=== PATIENT | female | born 1945 | race Caucasian/White ===

== ENCOUNTER 2018-06-25 15:46 | Inpatient (IN) ==
[2018-06-25] MEDS ORDERED: 0.9 % SODIUM CHLORIDE 1,000 ML IV ONE (16:06)
[2018-06-25] MEDS ORDERED: ONDANSETRON 4 MG/2 ML VIAL IV ONE (16:06)
[2018-06-25 16:43] LABS: Basophils # (Auto) 0 K/mcL (0.0-0.3); Basophils % (Auto) 0 % (0.0-2.0); Eosinophils # (Auto) 0 K/mcL (0.0-0.7); Eosinophils % (Auto) 0.1 % (0.0-7.0); Granulocytes % (Auto) 86.7 % (38.0-78.0); Lymphocytes % (Auto) 7.6 % (15.5-49.0); Mean Cell Volume 85.8 fL (80.0-100.0); Mean Corpuscular HGB Conc 33.9 g/dL (31.0-36.0); Monocytes # (Auto) 0.8 K/mcL (0.1-0.9); Monocytes % (Auto) 5.6 % (1.0-12.0); Platelet Count 408 K/mcL (140-440); RBC 4.96 M/mcL (4.00-5.20); Red Cell Distribution Width 13.6 % (11.5-14.5)
[2018-06-25 17:39] LABS: ALT/SGPT 25 U/l (0-40); Albumin 4.3 gm/dL (3.2-5.2); Albumin/Globulin Ratio 1.3 (1.0-2.3); Alkaline Phosphatase 106 U/L (39-117); Blood Urea Nitrogen 16 mg/dl (8-23)
--- NOTE | 2018-06-25 18:04 | Emergency Department Note ---
Nausea/Vomiting/Diarrhea HPI - General Chief complaint: Nausea/Vomiting/Diarrhea Stated complaint: nausea Time Seen by Provider: 06/25/18 15:52 Source: patient Mode of arrival: ambulatory Limitations: no limitations - History of Present Illness HPI Narrative: 72-year-old female in ED with present. Patient states she began having pain 5-6 days ago. Left side near the lower rib pain. Patient states she was seen here 4 days ago for rib pain. Patient was placed on hydrocodone due to healing rib fracture. Patient began vomiting after leaving the ER. And has had multiple episodes since. No diarrhea. Patient does not know how she may have fractured her rib. Patient was seen by her primary care physician one day ago and switched to tramadol and Compazine and taken off the hydrocodone. Patient has had increased nausea and difficulty eating over the last 6 days. Patient has been unable to keep food down. Patient does have sciatica problems and receives pain injections. Patient states she did have a cold and in May but that since has cleared. And she also has had an abscess on the bottom of her right foot and was advised she could be done taking the antibiotics yesterday at her physician's visit. Today patient was walking to the bathroom around 10 AM and slid herself to the ground due to weakness. Her returned home about 4 hours later and she was still on the ground alert and oriented but severely weak. states it was very difficult getting her into the vehicle due to her weakness. Patient has history of heart murmur, hypertension, dyslipidemia, peripheral neuropathy, GERD, type 2 diabetes non- insulin-dependent. MD complaint: nausea, vomiting Onset (ago): day(s) (5) Description of Vomiting: watery Associated Abdominal Pain: Yes (ULQ) Location of pain: LUQ Severity: moderate Quality: aching Consistency: constant Improves with: none Worsens with: vomiting Associated symptoms: Reports: loss of appetite, nausea/vomiting, weakness - Related Data Home Medications Medication Instructions Recorded Confirmed Carvedilol [Coreg] 25 mg PO BID 06/20/16 06/25/18 Cyanocobalamin [Vitamin B12] 1,000 mcg IM Q21D 06/20/16 06/25/18 Fish Oil 1,000 mg PO BID 06/20/16 06/25/18 Losartan Potassium [Cozaar] 100 mg PO DAILY@1200 06/20/16 06/25/18 Multivit with Iron-Minerals 1 tab PO DAILY 06/20/16 06/25/18 [Centravites 50 Plus] Omeprazole [PriLOSEC] 20 mg PO ACB 06/20/16 06/25/18 Spironolactone [Aldactone] 25 mg PO DAILY 06/20/16 06/25/18 amLODIPine [Norvasc] 5 mg PO DAILY 06/20/16 06/25/18 metFORMIN HCL [Glucophage Xr] 500 mg PO BID 06/20/16 06/25/18 traMADol [Ultram] 50 mg PO BID 06/20/16 06/25/18 Chlorthalidone 50 mg PO DAILY 06/25/18 06/25/18 Allergies Allergy/AdvReac Type Severity Reaction Status Date / Time Erythromycin Base Allergy Mild Diarrhea Verified 06/25/18 15:50 Penicillins AdvReac Unknown Unknown Verified 06/25/18 15:50 Review of Systems All systems ED: reviewed and negative except as stated. Past Medical History - Past Medical History PMFSH Narrative: All Active Problems Allergic reaction (Acute) Bee sting reaction (Acute) Chest wall pain (Acute) Medical history: Reports: arthritis, cancer (Breast, melanoma), DM, GERD, hyperlipidemia, hypertension, valvular heart disease (Rheumatic fever) Surgical history ED: Reports: - Social History smoking status: Never smoker Alcohol use: Reports: None Drug use: Reports: none Physical Exam Limitations: no limitations General appearance: alert, lethargic Head: atraumatic, normocephalic, normal inspection Eye: Present: normal appearance, PERRL, EOMI. Absent: conjunctival injection ENT: normal exam, normal oropharynx, mucous membranes dry, TM's normal bilaterally, normal external ear exam Neck: Present: normal inspection. Absent: tenderness, lymphadenopathy Chest: Present: normal inspection, symmetric chest wall rise. Absent: tenderness Respiratory: Present: normal lung sounds bilaterally. Absent: respiratory distress, rales/crackles, wheezes Cardiovascular: Present: regular rate, normal rhythm. Absent: systolic murmur, diastolic murmur Abdominal: Present: soft, tenderness (LUQ), normal bowel sounds. Absent: distention, guarding, rebound, rigidity Extremities: Present: normal inspection. Absent: pedal edema Neurological: Present: alert, oriented X3 Psychiatric: Present: normal affect, normal mood. Absent: depressed, agitated, anxious Skin: Present: warm, dry, intact, normal color. Absent: cyanosis, diaphoresis, erythema Course Vital Signs Temperature 97.6 F 06/25/18 15:47 Pulse Rate 75 06/25/18 15:47 Respiratory Rate 18 06/25/18 15:47 Blood Pressure 155/83 06/25/18 15:47 Pulse Oximetry (%) 95 06/25/18 15:47 Temperature 98.0 F 06/25/18 20:32 Pulse Rate 85 06/25/18 20:45 Respiratory Rate 15 06/25/18 20:45 Blood Pressure 163/91 06/25/18 20:45 Pulse Oximetry (%) 95 06/25/18 20:45 Nausea/Vomiting/Diarrhea - [facility] Narrative Medical decision making narrative: provided pt 1 liter normal saline while waiting for labs to Return. Pt with White Blood cell count 13.9, sodium 110, potassium 2.6 Dr. Hare consult on admitting the patient with hyponatremia and hypokalemia. kindly accepted. - Lab Data Lab results reviewed: Yes I reviewed the patient's lab results. Result diagrams: 06/25/18 16:16 06/25/18 18:45 Lab Results 06/25/18 06/25/18 06/25/18 Range/Units 16:15 16:16 16:16 WBC 13.9 H (4.5-11.0) K/mcL RBC 4.96 (4.00-5.20) M/mcL Hgb 14.4 (12.0-15.0) g/dL Hct 42.5 (36.0-48.0) % MCV 85.8 (80.0-100.0) fL MCH 29.1 (26.0-34.0) pg MCHC 33.9 (31.0-36.0) g/dL RDW 13.6 (11.5-14.5) % Plt Count 408 (140-440) K/mcL MPV 7.3 L (7.4-10.4) fL Gran % 86.7 H (38.0-78.0) % Lymph % (Auto) 7.6 L (15.5-49.0) % [place] % (Auto) 5.6 (1.0-12.0) % Eos % (Auto) 0.1 (0.0-7.0) % Baso % (Auto) 0 (0.0-2.0) % Gran # 12.0 H (1.8-8.0) K/mcL Lymph # (Auto) 1.0 L (1.5-4.8) K/mcL [place] # (Auto) 0.8 (0.1-0.9) K/mcL Eos # (Auto) 0 (0.0-0.7) K/mcL Baso # (Auto) 0 (0.0-0.3) K/mcL Total Counted Seg Neutrophils % (38-78) % Band Neutrophils % Lymphocytes % (15-49) % Monocytes % (Manual) (1-12) % Basophils % (Manual) (0-2) % Platelet Estimate (NORMAL) RBC Morphology (NORMAL) Sodium 110 L* (133-145) mmol/L Potassium 2.7 L* (3.3-5.1) mmol/L Chloride 67 L (96-108) mmol/L Carbon Dioxide 27 (22-30) mmol/L Anion Gap 16.0 (8-16) BUN 16 (8-23) mg/dl Creatinine 0.6 (0.6-1.1) mg/dl GFR Calculation 92 Glucose 158 H (70-105) mg/dL Osmolality (280-300) mOSM/kg Uric Acid (2.5-8.0) mg/dL Calcium 9.5 (8.6-10.4) mg/dl Phosphorus (2.7-4.5) mg/dL Magnesium (1.6-2.5) mg/dL Total Bilirubin 1.1 H (0.0-1.0) mg/dL AST 25 (0-37) U/l ALT 25 (0-40) U/l Alkaline Phosphatase 106 (39-117) U/L Total Protein 7.7 (5.9-8.4) gm/dL Albumin 4.3 (3.2-5.2) gm/dL Globulin 3.4 (2.2-3.7) gm/dL Albumin/Globulin Ratio 1.3 (1.0-2.3) TSH 1.39 (0.27-5.01) uIU/ml Urine Color Urine Appearance Urine pH (5.0-9.0) Ur Specific [place] (1.000-1.035) Urine Protein (NEG) mg/dL Urine Glucose (UA) (NEG) mg/dL Urine Ketones (NEG) mg/dL Urine Occult Blood (<0.03) mg/dL Urine Nitrate (NEG) Urine Bilirubin (NEG) mg/dL Urine Urobilinogen (NEG) mg/dL Ur Leukocyte Esterase (NEG) /uL Ur Culture Indicated? Urine Osmolality (80-1000) mOsm/kg Ur Random Sodium mmol/L 06/25/18 06/25/18 06/25/18 Range/Units 18:15 18:30 18:45 WBC (4.5-11.0) K/mcL RBC (4.00-5.20) M/mcL Hgb (12.0-15.0) g/dL Hct (36.0-48.0) % MCV (80.0-100.0) fL MCH (26.0-34.0) pg MCHC (31.0-36.0) g/dL RDW (11.5-14.5) % Plt Count (140-440) K/mcL MPV (7.4-10.4) fL Gran % (38.0-78.0) % Lymph % (Auto) (15.5-49.0) % [place] % (Auto) (1.0-12.0) % Eos % (Auto) (0.0-7.0) % Baso % (Auto) (0.0-2.0) % Gran # (1.8-8.0) K/mcL Lymph # (Auto) (1.5-4.8) K/mcL [place] # (Auto) (0.1-0.9) K/mcL Eos # (Auto) (0.0-0.7) K/mcL Baso # (Auto) (0.0-0.3) K/mcL Total Counted 100 Seg Neutrophils % 81 H (38-78) % Band Neutrophils % Not Reportable Lymphocytes % 11 L (15-49) % Monocytes % (Manual) 7 (1-12) % Basophils % (Manual) 1 (0-2) % Platelet Estimate Normal (NORMAL) RBC Morphology Normal (NORMAL) Sodium 112 L* (133-145) mmol/L Potassium 2.9 L* (3.3-5.1) mmol/L Chloride 67 L (96-108) mmol/L Carbon Dioxide 24 (22-30) mmol/L Anion Gap 21.0 H (8-16) BUN 16 (8-23) mg/dl Creatinine 0.5 L (0.6-1.1) mg/dl GFR Calculation 97 Glucose 154 H (70-105) mg/dL Osmolality 238 L (280-300) mOSM/kg Uric Acid 2.8 (2.5-8.0) mg/dL Calcium 9.7 (8.6-10.4) mg/dl Phosphorus 2.5 L (2.7-4.5) mg/dL Magnesium 1.9 (1.6-2.5) mg/dL Total Bilirubin 1.2 H (0.0-1.0) mg/dL AST 27 (0-37) U/l ALT 22 (0-40) U/l Alkaline Phosphatase 101 (39-117) U/L Total Protein 7.9 (5.9-8.4) gm/dL Albumin 4.5 (3.2-5.2) gm/dL Globulin 3.4 (2.2-3.7) gm/dL Albumin/Globulin Ratio 1.3 (1.0-2.3) TSH (0.27-5.01) uIU/ml Urine Color Urine Appearance Urine pH (5.0-9.0) Ur Specific [place] (1.000-1.035) Urine Protein (NEG) mg/dL Urine Glucose (UA) (NEG) mg/dL Urine Ketones (NEG) mg/dL Urine Occult Blood (<0.03) mg/dL Urine Nitrate (NEG) Urine Bilirubin (NEG) mg/dL Urine Urobilinogen (NEG) mg/dL Ur Leukocyte Esterase (NEG) /uL Ur Culture Indicated? Urine Osmolality 477 (80-1000) mOsm/kg Ur Random Sodium 52 mmol/L 06/25/18 Range/Units 18:45 WBC (4.5-11.0) K/mcL RBC (4.00-5.20) M/mcL Hgb (12.0-15.0) g/dL Hct (36.0-48.0) % MCV (80.0-100.0) fL MCH (26.0-34.0) pg MCHC (31.0-36.0) g/dL RDW (11.5-14.5) % Plt Count (140-440) K/mcL MPV (7.4-10.4) fL Gran % (38.0-78.0) % Lymph % (Auto) (15.5-49.0) % [place] % (Auto) (1.0-12.0) % Eos % (Auto) (0.0-7.0) % Baso % (Auto) (0.0-2.0) % Gran # (1.8-8.0) K/mcL Lymph # (Auto) (1.5-4.8) K/mcL [place] # (Auto) (0.1-0.9) K/mcL Eos # (Auto) (0.0-0.7) K/mcL Baso # (Auto) (0.0-0.3) K/mcL Total Counted Seg Neutrophils % (38-78) % Band Neutrophils % Lymphocytes % (15-49) % Monocytes % (Manual) (1-12) % Basophils % (Manual) (0-2) % Platelet Estimate (NORMAL) RBC Morphology (NORMAL) Sodium (133-145) mmol/L Potassium (3.3-5.1) mmol/L Chloride (96-108) mmol/L Carbon Dioxide (22-30) mmol/L Anion Gap (8-16) BUN (8-23) mg/dl Creatinine (0.6-1.1) mg/dl GFR Calculation Glucose (70-105) mg/dL Osmolality (280-300) mOSM/kg Uric Acid (2.5-8.0) mg/dL Calcium (8.6-10.4) mg/dl Phosphorus (2.7-4.5) mg/dL Magnesium (1.6-2.5) mg/dL Total Bilirubin (0.0-1.0) mg/dL AST (0-37) U/l ALT (0-40) U/l Alkaline Phosphatase (39-117) U/L Total Protein (5.9-8.4) gm/dL Albumin (3.2-5.2) gm/dL Globulin (2.2-3.7) gm/dL Albumin/Globulin Ratio (1.0-2.3) TSH (0.27-5.01) uIU/ml Urine Color Yellow Urine Appearance Hazy Urine pH 6.0 (5.0-9.0) Ur Specific [place] 1.015 (1.000-1.035) Urine Protein Neg (NEG) mg/dL Urine Glucose (UA) 50 A (NEG) mg/dL Urine Ketones Neg (NEG) mg/dL Urine Occult Blood Neg (<0.03) mg/dL Urine Nitrate Neg (NEG) Urine Bilirubin Neg (NEG) mg/dL Urine Urobilinogen Neg (NEG) mg/dL Ur Leukocyte Esterase Neg (NEG) /uL Ur Culture Indicated? No Urine Osmolality (80-1000) mOsm/kg Ur Random Sodium mmol/L - Radiology Data Radiology results reviewed: Yes I reviewed the patient's radiology results. chest XR: 1. No acute or focal pulmonary parenchymal infiltrate 2. Mild cardiomegaly. No evidence for congestive heart failure. 3. Thoracic and lumbar scoliosis 4. No significant interval change since 06/21/2018 Disposition Pt seen by HOME ADMINISTRATOR/PA only: No ([place]) Clinical Impression: Hyponatremia, Hypokalemia Disposition: Xfer As Inpt ([facility]) Time of Disposition: 22:02
[2018-06-25] MEDS ORDERED: 0.9 % SODIUM CHLORIDE 1,000 ML IV SCH ×2 (18:45→20:32)
--- NOTE | 2018-06-25 19:09 | XRay Report ---
INDICATION: Left rib pain. Chest pain. TECHNIQUE: AP chest x-ray,portable semiupright COMPARISON: Previous chest x-ray and rib series dated 06/21/2018 FINDINGS:Previous examination demonstrated a healing fracture of the left sixth rib. This is not well-visualized on AP portable chest x-ray There are surgical clips in the right axilla. Surgical clips which are probably within right breast tissue. Significant right convex thoracic and left convex thoracolumbar scoliosis. There is a large hiatal hernia. No focal pulmonary parenchymal infiltrate or mass. No evidence for congestive heart failure. Mild cardiomegaly, unchanged. IMPRESSION: 1. No acute or focal pulmonary parenchymal infiltrate 2. Mild cardiomegaly. No evidence for congestive heart failure. 3. Thoracic and lumbar scoliosis 4. No significant interval change since 06/21/2018 Interpreted and Authenticated by: Boni Zheng 06/25/18
[2018-06-25 19:15] LABS: Osmolality,Urine 477 mOsm/kg (80-1000)
[2018-06-25 19:19] LABS: ALT/SGPT 22 U/l (0-40); Albumin 4.5 gm/dL (3.2-5.2); Albumin/Globulin Ratio 1.3 (1.0-2.3); Alkaline Phosphatase 101 U/L (39-117); Blood Urea Nitrogen 16 mg/dl (8-23); Uric Acid 2.8 mg/dL (2.5-8.0)
[2018-06-25] MEDS ORDERED: traMADol 50 MG TABLET PO ONE (19:31)
[2018-06-25 19:45] LABS: Appearance,Urine HAZY; Bilirubin,Urine NEG (NEG); Color,Urine YELLOW; Glucose,Urine (UA) 50 mg/dL (NEG); Leukocyte Esterase,Urine NEG /uL (NEG); Protein,Urine NEG (NEG); Specific Gravity,Urine 1.015 (1.000-1.035); Urine Blood NEG mg/dL (<0.03); Urobilinogen,Urine NEG (NEG)
[2018-06-25] MEDS ORDERED: POTASSIUM CHLORIDE 40 MEQ in DEXTROSE 5% IN WATER 500 ML IV STA ×2 (20:08→20:32)
[2018-06-25] MEDS ORDERED: POTASSIUM CHLORIDE 20 MEQ TABLET PO STA ×2 (20:08→20:32)
--- NOTE | 2018-06-25 20:18 | Internal Med History&Physical ---
Medical - H&P: HPI Patient information: Note initiated : 06/25/18 at 8:12 pm Service Date, if different from initiated Date: [] Patient: Magy Barron a 72 y/o F admitted on for nausea. Chief Complaint: [] History of present illness: Ms. Barron is a 72 year old F Who presents with severe weakness and nausea vomiting. Patient states Friday or she noticed her left rib pain and gradually got worse for the next couple days she finally went in Friday to the ER and was found to have left rib fracture. There is no trauma she did have a cold and had been coughing but does not recall what might of caused the fracture. She was given some [place] and sent home. On the way home she had a bout of emesis. She has had nausea vomiting since since initial pain from the rib fracture she had poor oral intake. She saw her primary care provider switched from hydrocodone to tramadol as there is concern that the hydrocodone was causing the nausea. However when probing her further she does state that the nausea was there before she went to the ER. She also has sciatica and received pain injections for that. She recently finished regimen of Cipro for a abscess on her foot. Today patient felt lightheaded and very weak and now slid herself to the ground. She was on the ground for several hours before came home found her. She denies abdominal pain or diarrhea. No inciting events for the nausea. No abnormal eating habits. Most recent medication change was changed from hydrochlorothiazide to chlorthalidone when she last saw Dr. Briggs 6 months ago. She is also on spironolactone. In the ER she is found to have a sodium of 110 and potassium 2.7. Chest x-ray unremarkable. Review of Systems: Pertinent positives as above. denies headache/fever/chills/nausea/vomiting/ chest or abdominal pain/cough/dyspnea/diarrhea. Remaining 10 point review of systems reviewed negative Medical - H&P: PMH Medical history: Past medical history: Diabetes with neuropathy Hypertension GERD Past surgical to: Left total hip arthroplasty Family to: Mother heart disease Father heart disease Social history: Patient denies tobacco drinks alcohol rarely and relates a cane lives at home with family Medical - H&P: Meds Home Medications Medication Instructions Recorded Confirmed Type Carvedilol [Coreg] 25 mg PO BID 06/20/16 06/25/18 History Cyanocobalamin [Vitamin B12] 1,000 mcg IM Q21D 06/20/16 06/25/18 History Fish Oil 1,000 mg PO BID 06/20/16 06/25/18 History Losartan Potassium [Cozaar] 100 mg PO DAILY@1200 06/20/16 06/25/18 History Multivit with Iron-Minerals 1 tab PO DAILY 06/20/16 06/25/18 History [Centravites 50 Plus] Omeprazole [PriLOSEC] 20 mg PO ACB 06/20/16 06/25/18 History Spironolactone [Aldactone] 25 mg PO DAILY 06/20/16 06/25/18 History amLODIPine [Norvasc] 5 mg PO DAILY 06/20/16 06/25/18 History metFORMIN HCL [Glucophage Xr] 500 mg PO BID 06/20/16 06/25/18 History traMADol [Ultram] 50 mg PO BID 06/20/16 06/25/18 History Chlorthalidone 50 mg PO DAILY 06/25/18 06/25/18 History Allergies Allergy/AdvReac Type Severity Reaction Status Date / Time Erythromycin Base Allergy Mild Diarrhea Verified 06/25/18 15:50 Penicillins AdvReac Unknown Unknown Verified 06/25/18 15:50 Medical - H&P: Exam - Constitutional Vitals: Temp Pulse Resp BP Pulse Ox 97.6 F 75 18 155/83 95 06/25/18 15:47 06/25/18 15:47 06/25/18 15:47 06/25/18 15:47 06/25/18 15:47 Exam: General: Alert, Awake, No acute Distress Eyes/N/T: EOMI, PEERL, DMM Head/Neck: neck supple, normocephalic atraumatic CV: RRR, No murmurs, normal s1/s2 Pulm: Clear b/l, no wheezing/rhonchi/rales Abd: soft, nontender, +BS x4 Ext: no clubbing/cyanosis/edema Neuro: Alert, no focal deficits, moves all extremities, CN 2-12 grossly intact, symmetrical strength b/l upper/lower, sensations intact b/l upper/lower Skin: warm/dry Medical - H&P: Reslt - Labs CBC & Chem 7: 06/25/18 16:16 06/25/18 18:45 Labs: Short CBC 06/25/18 Range/Units 16:16 WBC 13.9 H (4.5-11.0) K/mcL Hgb 14.4 (12.0-15.0) g/dL Hct 42.5 (36.0-48.0) % Plt Count 408 (140-440) K/mcL BMP 06/25/18 06/25/18 16:16 18:45 Sodium 110 L* 112 L* Potassium 2.7 L* 2.9 L* Chloride 67 L 67 L Carbon Dioxide 27 24 BUN 16 16 Creatinine 0.6 0.5 L Glucose 158 H 154 H Calcium 9.5 9.7 Liver Function 06/25/18 06/25/18 Range/Units 16:16 18:45 Total Bilirubin 1.1 H 1.2 H (0.0-1.0) mg/dL AST 25 27 (0-37) U/l ALT 25 22 (0-40) U/l Alkaline Phosphatase 106 101 (39-117) U/L Albumin 4.3 4.5 (3.2-5.2) gm/dL Urine 06/25/18 Range/Units 18:45 Urine Color Yellow Urine Appearance Hazy Urine pH 6.0 (5.0-9.0) Ur Specific [place] 1.015 (1.000-1.035) Urine Protein Neg (NEG) mg/dL Urine Glucose (UA) 50 A (NEG) mg/dL - Impressions Chest x-ray no acute abnormalities Medical - H&P: A/P - Narrative A/P Narrative: A: *Hyponatremia likely subacute at least possibly chronic: Likely secondary tomultiple diuretics and poor oral intake *Hypokalemia: Secondary to same above *Leukocytosis: Possibly reactive, afebrile, no respiratory symptoms. She did just finish a course of antibiotics for foot abscess infection which is improved *Diabetes with neuropathy: *Hypertension: She is on Norvasc Coreg losartan Aldactone and chlorthalidone at home *GERD *recent rib fracture: P: -NS IVF's -serial BMP -Antiemetics, pain control -A.m. cortisol, check TSH -SSI, hold metformin -check manual diff, follow cbc - -ppx: lovenox
[2018-06-25] MEDS ORDERED: DEXTROSE 50% 50 ML VIAL IV PRN (20:32)
[2018-06-25] MEDS ORDERED: PROMETHAZINE 25 MG TABLET PO PRN (20:32)
[2018-06-25] MEDS ORDERED: ACETAMINOPHEN 325 MG TABLET PO PRN (20:32)
[2018-06-25] MEDS ORDERED: PROCHLORPERAZINE 25 MG SUPP.RECT PR PRN (20:32)
[2018-06-25] MEDS ORDERED: DEXTROSE 31 GM ORAL.SUSP PO PRN (20:32)
[2018-06-25] MEDS ORDERED: hydrALAZINE 20 MG/ML VIAL IV PRN (20:32)
[2018-06-25 21:16] LABS: Basophils % (Manual) 1 % (0-2); Lymphocytes % 11 % (15-49); Monocytes % (Manual) 7 % (1-12); Platelet Estimate NORMAL (NORMAL); RBC Morphology NORMAL (NORMAL); Segmented Neutrophils % 81 % (38-78)
[2018-06-25] MEDS ORDERED: POTASSIUM CHLORIDE 20 MEQ/10 ML VIAL IV ONE ×2 (22:49→23:41)
[2018-06-25] MEDS: DOCUSATE SODIUM 100 MG CAPSULE PO SCH (23:07)
[2018-06-25] MEDS: INSULIN LISPRO 1 UNIT/0.01 ML UNIT SQ SCH (23:07)
[2018-06-25] MEDS: ONDANSETRON 4 MG/2 ML VIAL IV PRN (23:08)
[2018-06-25] MEDS: FAMOTIDINE/PF 20 MG/2 ML VIAL IV SCH (23:08)
[2018-06-25] MEDS: 0.9 % SODIUM CHLORIDE 10 ML SYRINGE IV SCH (23:08)
[2018-06-25 23:25] LABS: Blood Urea Nitrogen 15 mg/dl (8-23)
[2018-06-25] MEDS ORDERED: POTASSIUM CHLORIDE 40 MEQ in DEXTROSE 5% IN WATER 500 ML IV ONE (23:27)
[2018-06-25] MEDS ORDERED: SODIUM CHLORIDE 1 GM TABLET PO ONE (23:29)
[2018-06-25] MEDS: 0.9 % SODIUM CHLORIDE 1,000 ML IV SCH (23:54)
[2018-06-26] MEDS ORDERED: POTASSIUM CHLORIDE 20 MEQ PACKET ONE (00:02)
[2018-06-26] MEDS ORDERED: POTASSIUM CHLORIDE 20 MEQ PACKET PO ONE ×2 (00:06→17:58)
[2018-06-26] MEDS ORDERED: POTASSIUM CHLORIDE 20 MEQ/15 ML ML PT ONE (00:30)
[2018-06-26] MEDS: ONDANSETRON 4 MG/2 ML VIAL IV PRN ×2 (03:50→07:51)
[2018-06-26] MEDS: 0.9 % SODIUM CHLORIDE 1,000 ML IV SCH (04:55)
[2018-06-26] MEDS: 0.9 % SODIUM CHLORIDE 10 ML SYRINGE IV SCH ×3 (04:55→22:17)
[2018-06-26 05:17] LABS: Basophils # (Auto) 0 K/mcL (0.0-0.3); Basophils % (Auto) 0.2 % (0.0-2.0); Eosinophils # (Auto) 0 K/mcL (0.0-0.7); Eosinophils % (Auto) 0.2 % (0.0-7.0); Granulocytes % (Auto) 75.6 % (38.0-78.0); Lymphocytes # (Auto) 2.2 K/mcL (1.5-4.8); Lymphocytes % (Auto) 15.2 % (15.5-49.0); Mean Corpuscular HGB Conc 33.7 g/dL (31.0-36.0); Monocytes # (Auto) 1.2 K/mcL (0.1-0.9); Monocytes % (Auto) 8.8 % (1.0-12.0); Platelet Count 356 K/mcL (140-440); RBC 4.68 M/mcL (4.00-5.20); Red Cell Distribution Width 13.5 % (11.5-14.5)
[2018-06-26 06:03] LABS: ALT/SGPT 22 U/l (0-40); Albumin 3.8 gm/dL (3.2-5.2); Albumin/Globulin Ratio 1.2 (1.0-2.3); Alkaline Phosphatase 102 U/L (39-117); Bilirubin,Direct < 0.2 mg/dL (0.0-0.3); Blood Urea Nitrogen 13 mg/dl (8-23); Gamma Glutamyl Transpeptidase 41 U/L (5-36); Uric Acid 2.5 mg/dL (2.5-8.0)
[2018-06-26] MEDS ORDERED: NEUTRA PHOS 1 PACKET PO ONE (07:31)
--- NOTE | 2018-06-26 07:32 | Internal Med Progress Note ---
Medical - PN: Subj Patient information: Note initiated : 06/26/18 at 7:27 am Service Date, if different from initiated Date: [] Patient: Magy Barron a 72 y/o F admitted on 06/25/18 for nausea. Chief Complaint: [] Interval history: Ms. Barron is a 72 year old F Who presents with severe weakness and nausea vomiting. Patient states Friday or she noticed her left rib pain and gradually got worse for the next couple days she finally went in Friday to the ER and was found to have left rib fracture. There is no trauma she did have a cold and had been coughing but does not recall what might of caused the fracture. She was given some [place] and sent home. On the way home she had a bout of emesis. She has had nausea vomiting since since initial pain from the rib fracture she had poor oral intake. She saw her primary care provider switched from hydrocodone to tramadol as there is concern that the hydrocodone was causing the nausea. However when probing her further she does state that the nausea was there before she went to the ER. She also has sciatica and received pain injections for that. She recently finished regimen of Cipro for a abscess on her foot. Today patient felt lightheaded and very weak and now slid herself to the ground. She was on the ground for several hours before came home found her. She denies abdominal pain or diarrhea. No inciting events for the nausea. No abnormal eating habits. Most recent medication change was changed from hydrochlorothiazide to chlorthalidone when she last saw Dr. Briggs 6 months ago. She is also on spironolactone. In the ER she is found to have a sodium of 110 and potassium 2.7. Chest x-ray unremarkable. 06/26 States she got about an hour worth of sleep last night. Nausea is present but improved from last night. No vomiting no other pains or complaints. The abscess on her right foot on the ball that she was treated with Cipro for looks good. Currently having lab issues with the sodium level unfortunately, and quite disconcerting in this patient's scenario. Stat chemistries are taking 2 hours to get back so a Chem-8 was done to expedite lab return and BMP was ordered at the same time to correlate. The chem-8 showed a sodium of 118 and when the BMP sodium finally came back it had a sodium of 114 -these numbers each give me a completely different path of treatment. Discussed with lab and lab is coming to repeat labs stat, currently in a holding pattern of what direction to take in a time sensitive scenario. Review of Systems: denies headache/fever/chills/vomiting/chest or abdominal pain/cough/dyspnea/ diarrhea. Otherwise see above. - Constitutional Vitals: Vital Signs Temp Pulse Resp BP Pulse Ox 98.0 F 75 14 156/89 94 06/25/18 20:32 06/26/18 04:01 06/26/18 04:01 06/26/18 04:01 06/26/18 04:01 Period Temp Pulse Resp BP Sys/Dewitt Pulse Ox Last 24 Hr 97.6 F-98.0 F 52-87 10-18 143-175/69-144 90-98 Intake and Output 06/25/18 06/26/18 06/26/18 21:59 05:59 13:59 Intake Total 1000 / 1000 2390 / 2390 Output Total 275 / 275 250 / 250 Balance 1000 / 1000 2115 / 2115 -250 / -250 Weight 84.64 kg Intake & Output: Intake & Output 06/25/18 06/26/18 06/26/18 21:59 05:59 13:59 Intake Total 1000 / 1000 2390 / 2390 Output Total 275 / 275 250 / 250 Balance 1000 / 1000 2115 / 2115 -250 / -250 Weight 84.64 kg Intake: IV 1000 / 1000 0 / 2050 Sodium Chloride 0.9% 1,000 ml @ 1000 / 1000 1083 / 1083 150 mls/hr IV .Q6H40M [facility] Rx#: [id number] Oral 340 / 340 Output: Void Amount 275 / 275 250 / 250 Other: Urine Appearance Clear Urine Color Bright Yellow # [place] 2 Exam: General: Alert, Awake, No acute Distress Eyes/N/T: EOMI, Head/Neck: neck supple, CV: RRR, No murmurs, normal s1/s2 Pulm: Clear b/l, no wheezing/rhonchi/rales Abd: soft, nontender, +BS x4 Ext: no clubbing/cyanosis/edema Neuro: Alert, no focal deficits, moves all extremities, Skin: warm/dry Medical - PN: Obj Da - Labs CBC & Chem 7: 06/26/18 04:05 06/26/18 08:40 Labs: Abnormal Lab Results 06/26/18 06/26/18 06/25/18 04:05 04:05 22:12 WBC 14.1 H MPV 7.1 L Gran % Lymph % (Auto) 15.2 L Gran # 10.7 H Lymph # (Auto) [place] # (Auto) 1.2 H Seg Neutrophils % Lymphocytes % Sodium 116 L* 113 L* Potassium 3.2 L 2.2 L* Chloride 77 L 72 L Anion Gap Creatinine 0.5 L 0.5 L Glucose 112 H Osmolality Phosphorus 2.2 L Total Bilirubin 1.1 H GGT 41 H Triglycerides 196 H Urine Glucose (UA) 06/25/18 06/25/18 06/25/18 18:45 18:45 18:15 WBC MPV Gran % Lymph % (Auto) Gran # Lymph # (Auto) [place] # (Auto) Seg Neutrophils % 81 H Lymphocytes % 11 L Sodium 112 L* Potassium 2.9 L* Chloride 67 L Anion Gap 21.0 H Creatinine 0.5 L Glucose 154 H Osmolality 238 L Phosphorus 2.5 L Total Bilirubin 1.2 H GGT Triglycerides Urine Glucose (UA) 50 A 06/25/18 06/25/18 16:16 16:16 WBC 13.9 H MPV 7.3 L Gran % 86.7 H Lymph % (Auto) 7.6 L Gran # 12.0 H Lymph # (Auto) 1.0 L [place] # (Auto) Seg Neutrophils % Lymphocytes % Sodium 110 L* Potassium 2.7 L* Chloride 67 L Anion Gap Creatinine Glucose 158 H Osmolality Phosphorus Total Bilirubin 1.1 H GGT Triglycerides Urine Glucose (UA) Meds: Medications Acetaminophen (Tylenol) 650 mg PO Q6HP PRN PRN Reason: PAIN/FEVER > 101 Hydrocodone Bitart/Acetaminophen ([place] 5/325mg) 1 tab PO Q4HP PRN PRN Reason: PAIN LEVEL 3-6 Amlodipine Besylate (Norvasc) 5 mg PO DAILY [facility] Carvedilol (Coreg) 25 mg PO BIDCC [facility] Dextrose (Dextrose 50%) 0 ml IV UD PRN PRN Reason: Hypoglycemia Diagnostic Test (Pha) (Accu-Chek) 1 each FS ACHS JEANNIE Last Admin: 06/25/18 20:30 Dose: 1 each Docusate Sodium (Colace) 100 mg PO BID [facility] Last Admin: 06/25/18 23:07 Dose: 100 mg Enoxaparin Sodium (Lovenox) 40 mg SQ DAILY [facility] Famotidine (Pepcid) 20 mg IV Q12 [facility] Last Admin: 06/25/18 23:08 Dose: 20 mg Glucose (Insta-Glucose) 15 gm PO PRN PRN PRN Reason: Hypoglycemia Hydralazine HCl (Apresoline) 0 mg IV Q2HP PRN PRN Reason: Hypertension Last Admin: 06/26/18 03:50 Dose: 20 mg Sodium Chloride (Sodium Chloride 0.9%) 1,000 mls @ 150 mls/hr IV .Q6H40M [facility] Last Admin: 06/26/18 04:55 Dose: 150 mls/hr Insulin Human Lispro (Humalog) 0 unit SQ ACHS [facility]; Protocol Last Admin: 06/25/18 23:07 Dose: Not Given Iron Carb/Multivit/[place]/Folic Acid (Multivitamin W/Minerals) 1 tab PO DAILY [facility] Losartan Potassium (Cozaar) 100 mg PO DAILY@1200 [facility] Morphine Sulfate (Morphine) 2 mg IV Q3HP PRN PRN Reason: PAIN LEVEL > 6 Last Admin: 06/26/18 05:03 Dose: 2 mg Ondansetron HCl (Zofran) 4 mg IV Q4HP PRN PRN Reason: Nausea And Vomiting Last Admin: 06/26/18 03:50 Dose: 4 mg Prochlorperazine Maleate (Compazine) 12.[address] Q12HP PRN PRN Reason: Nausea And Vomiting Promethazine HCl (Phenergan) 12.5 mg PO Q6HP PRN PRN Reason: Nausea And Vomiting Last Admin: 06/26/18 05:04 Dose: 12.5 mg Sodium Chloride (Saline Flush) 10 ml IV Q8 [facility] Last Admin: 06/26/18 04:55 Dose: Not Given Medical - PN: A/P - Time Spent With Patient Total time spent is greater than 50% in coordination of care (as documented) at patient's floor/unit and/or counseling patient: - Narrative A/P Narrative: A: *Hyponatremia likely subacute at least and likely chronic: Likely secondary to multiple diuretics and poor oral intake -improving appropriately -TSH/cortisol ok *Hypokalemia: Secondary to same above *Leukocytosis: Possibly reactive, afebrile, no respiratory symptoms. She did just finish a course of antibiotics for foot abscess infection which is improved -no bandemia, PCT low, healing abscess on foot looks good *Diabetes with neuropathy: *Hypertension: She is on Norvasc Coreg losartan Aldactone and chlorthalidone at home *GERD *recent rib fracture: P: -Laboratory error in sodium report, currently repeating stat labs - treatment currently stalled, unfortunately. Goal max increase is 8 points in any 24hr period -potassium replete -serial BMP -Antiemetics, pain control -SSI, hold metformin - -ppx: lovenox Medical - PN: Qual - VTE Deep Vein Thrombosis/Pulmonary Embolism Present on Admission: No
[2018-06-26] MEDS: INSULIN LISPRO 1 UNIT/0.01 ML UNIT SQ SCH ×4 (07:35→21:30)
[2018-06-26] MEDS: CARVEDILOL 12.5 MG TABLET PO SCH ×2 (07:52→17:01)
[2018-06-26 09:45] LABS: Blood Urea Nitrogen 11 mg/dl (8-23)
[2018-06-26] MEDS: ENOXAPARIN 40 MG/0.4 ML SYRINGE SQ SCH (09:56)
[2018-06-26] MEDS: amLODIPine 5 MG TABLET PO SCH (09:56)
[2018-06-26] MEDS: DOCUSATE SODIUM 100 MG CAPSULE PO SCH ×3 (09:56→22:16)
[2018-06-26] MEDS: FAMOTIDINE/PF 20 MG/2 ML VIAL IV SCH ×2 (09:56→22:16)
[2018-06-26] MEDS: MULTIVIT,THER IRON,CA,FA & MIN 1 TABLET PO SCH (09:56)
[2018-06-26 11:45] LABS: ALT/SGPT 20 U/l (0-40); Albumin 3.5 gm/dL (3.2-5.2); Albumin/Globulin Ratio 1.2 (1.0-2.3); Alkaline Phosphatase 94 U/L (39-117); Blood Urea Nitrogen 11 mg/dl (8-23)
--- NOTE | 2018-06-26 11:54 | XRay Report ---
CLINICAL INFORMATION: Knee pain. Fall. TECHNIQUE: AP, oblique, crosstable lateral left knee COMPARISON: Previous examination dated 02/16/2018 FINDINGS: Large suprapatellar joint effusion. No lipohemarthrosis. Degenerative joint disease with narrowing of the patellofemoral joint. No left knee fracture. There is mild chondrocalcinosis. No osteochondral lesion. IMPRESSION: 1. Joint effusion. No lipohemarthrosis. 2. Degenerative joint disease 3. No acute fracture Interpreted and Authenticated by: Boni Zheng 06/26/18
[2018-06-26] MEDS ORDERED: LOSARTAN 50 MG TABLET PO SCH (12:00)
[2018-06-26] MEDS ORDERED: POTASSIUM CHLORIDE 20 MEQ TABLET PO ONE (13:18)
[2018-06-26 14:03] LABS: Blood Urea Nitrogen 11 mg/dl (8-23)
[2018-06-26] MEDS ORDERED: 0.9 % SODIUM CHLORIDE 500 ML IV ONE (15:15)
[2018-06-26] MEDS: 0.9 % SODIUM CHLORIDE 500 ML IV STA ×2 (15:49→17:01)
[2018-06-26 17:20] LABS: Blood Urea Nitrogen 10 mg/dl (8-23)
[2018-06-26] MEDS ORDERED: SODIUM CHLORIDE 1 GM TABLET PO ONE (17:52)
[2018-06-26 20:24] LABS: Appearance,Urine HAZY; Bilirubin,Urine NEG (NEG); Color,Urine YELLOW; Glucose,Urine (UA) 50 mg/dL (NEG); Leukocyte Esterase,Urine NEG /uL (NEG); Protein,Urine NEG (NEG); Specific Gravity,Urine 1.016 (1.000-1.035); Urine Blood NEG mg/dL (<0.03); Urobilinogen,Urine NEG (NEG)
[2018-06-26 20:33] LABS: Osmolality,Urine 576 mOsm/kg (80-1000)
[2018-06-26] MEDS ORDERED: diphenhydrAMINE 25 MG CAPSULE PO PRN (21:03)
[2018-06-26 21:14] LABS: Blood Urea Nitrogen 10 mg/dl (8-23)
[2018-06-26] MEDS ORDERED: FUROSEMIDE 20 MG/2 ML VIAL IV ONE (21:22)
[2018-06-26] MEDS ORDERED: ALBUMIN HUMAN 12.5 GM/50 ML BAG IV ONE (21:26)
[2018-06-26] MEDS: SODIUM CHLORIDE 1 GM TABLET PO SCH (22:16)
[2018-06-27 01:54] LABS: Blood Urea Nitrogen 9 mg/dl (8-23)
[2018-06-27] MEDS: DEXTROSE 5% IN WATER 100 ML IV SCH ×2 (05:15→05:16)
[2018-06-27 05:33] LABS: Basophils # (Auto) 0 K/mcL (0.0-0.3); Basophils % (Auto) 0.3 % (0.0-2.0); Eosinophils # (Auto) 0 K/mcL (0.0-0.7); Eosinophils % (Auto) 0.1 % (0.0-7.0); Granulocytes % (Auto) 74.5 % (38.0-78.0); Lymphocytes # (Auto) 1.5 K/mcL (1.5-4.8); Lymphocytes % (Auto) 14.2 % (15.5-49.0); Mean Cell Volume 85.9 fL (80.0-100.0); Mean Corpuscular HGB Conc 34.7 g/dL (31.0-36.0); Monocytes # (Auto) 1.1 K/mcL (0.1-0.9); Monocytes % (Auto) 10.9 % (1.0-12.0); Platelet Count 313 K/mcL (140-440); RBC 4.21 M/mcL (4.00-5.20); Red Cell Distribution Width 14.2 % (11.5-14.5)
[2018-06-27 06:10] LABS: ALT/SGPT 17 U/l (0-40); Albumin 3.6 gm/dL (3.2-5.2); Albumin/Globulin Ratio 1.2 (1.0-2.3); Alkaline Phosphatase 91 U/L (39-117); Bilirubin,Direct 0.2 mg/dL (0.0-0.3); Blood Urea Nitrogen 9 mg/dl (8-23); Gamma Glutamyl Transpeptidase 33 U/L (5-36); Uric Acid 2.2 mg/dL (2.5-8.0)
[2018-06-27] MEDS ORDERED: SODIUM CHLORIDE 1 GM TABLET PO SCH (07:25)
--- NOTE | 2018-06-27 07:26 | Internal Med Progress Note ---
Medical - PN: Subj Patient information: Note initiated : 06/27/18 at 7:19 am Service Date, if different from initiated Date: [] Patient: Magy Barron a 72 y/o F admitted on 06/25/18 for nausea. Chief Complaint: [] Interval history: Ms. Barron is a 72 year old F Who presents with severe weakness and nausea vomiting. Patient states Friday or she noticed her left rib pain and gradually got worse for the next couple days she finally went in Friday to the ER and was found to have left rib fracture. There is no trauma she did have a cold and had been coughing but does not recall what might of caused the fracture. She was given some [place] and sent home. On the way home she had a bout of emesis. She has had nausea vomiting since since initial pain from the rib fracture she had poor oral intake. She saw her primary care provider switched from hydrocodone to tramadol as there is concern that the hydrocodone was causing the nausea. However when probing her further she does state that the nausea was there before she went to the ER. She also has sciatica and received pain injections for that. She recently finished regimen of Cipro for a abscess on her foot. Today patient felt lightheaded and very weak and now slid herself to the ground. She was on the ground for several hours before came home found her. She denies abdominal pain or diarrhea. No inciting events for the nausea. No abnormal eating habits. Most recent medication change was changed from hydrochlorothiazide to chlorthalidone when she last saw Dr. Briggs 6 months ago. She is also on spironolactone. In the ER she is found to have a sodium of 110 and potassium 2.7. Chest x-ray unremarkable. 06/26 States she got about an hour worth of sleep last night. Nausea is present but improved from last night. No vomiting no other pains or complaints. The abscess on her right foot on the ball that she was treated with Cipro for looks good. Currently having lab issues with the sodium level unfortunately, and quite disconcerting in this patient's scenario. Stat chemistries are taking 2 hours to get back so a Chem-8 was done to expedite lab return and BMP was ordered at the same time to correlate. The chem-8 showed a sodium of 118 and when the BMP sodium finally came back it had a sodium of 114 -these numbers each give me a completely different path of treatment. Discussed with lab and lab is coming to repeat labs stat, currently in a holding pattern of what direction to take in a time sensitive scenario. 06/27 Slept okay last night. Nausea is improving. Has rib pain. Sodium improving. No other new complaints. No overnight events Review of Systems: denies headache/fever/chills/vomiting/chest or abdominal pain/cough/dyspnea/ diarrhea. Otherwise see above. - Constitutional Vitals: Vital Signs Temp Pulse Resp BP Pulse Ox 98.5 F 79 13 150/72 96 06/27/18 06:47 06/27/18 06:01 06/27/18 07:09 06/27/18 07:01 06/27/18 06:01 Period Temp Pulse Resp BP Sys/Dewitt Pulse Ox Last 24 Hr 97.5 F-100.3 F 64-89 12-24 92-156/49-86 87-97 Intake and Output 06/26/18 06/27/18 06/27/18 21:59 05:59 13:59 Intake Total 0 / 0 2122 Output Total 500 / 500 1225 / 1225 Balance -500 / -500 898 / 898 Weight 88.2 kg Intake & Output: Intake & Output 06/26/18 06/27/18 06/27/18 21:59 05:59 13:59 Intake Total 0 / 0 2122 Output Total 500 / 500 1225 / 1225 Balance -500 / -500 898 / 898 Weight 88.2 kg Intake: IV 0 / 0 2122 Output: Void Amount 500 / 500 1225 / 1225 Other: Meal Lunch Percent of Meal Consumed 50% Feeding Ability Independent Urine Appearance Clear Urine Color Dark Yellow Bright Yellow Urine Odor Normal Stool Consistency Loose Exam: General: Alert, Awake, No acute Distress Eyes/N/T: EOMI, Head/Neck: neck supple, CV: RRR, No murmurs, normal s1/s2 Pulm: Clear b/l, no wheezing/rhonchi/rales Abd: soft, nontender, +BS x4 Ext: no clubbing/cyanosis/edema Neuro: Alert, no focal deficits, moves all extremities, Skin: warm/dry Medical - PN: Obj Da - Labs CBC & Chem 7: 06/27/18 03:51 06/27/18 03:51 Labs: Abnormal Lab Results 06/27/18 06/27/18 06/27/18 03:51 03:51 00:18 WBC MPV 7.3 L Gran % Lymph % (Auto) 14.2 L Gran # Lymph # (Auto) [place] # (Auto) 1.1 H Seg Neutrophils % Lymphocytes % POC Sodium Sodium 117 L* 117 L* POC Potassium Potassium 3.1 L 3.2 L POC Chloride Chloride 79 L 79 L Carbon Dioxide Anion Gap Creatinine 0.5 L 0.5 L POC Creatinine Glucose 117 H POC Glucose Osmolality Uric Acid 2.2 L Calcium POC WB Ioniz Calcium Phosphorus 2.4 L Total Bilirubin 1.5 H GGT Triglycerides 161 H Urine Glucose (UA) 06/26/18 06/26/18 06/26/18 20:00 17:56 16:30 WBC MPV Gran % Lymph % (Auto) Gran # Lymph # (Auto) [place] # (Auto) Seg Neutrophils % Lymphocytes % POC Sodium Sodium 114 L* POC Potassium Potassium POC Chloride Chloride 80 L Carbon Dioxide 21 L Anion Gap Creatinine 0.5 L POC Creatinine Glucose 135 H POC Glucose Osmolality 244 L Uric Acid Calcium POC WB Ioniz Calcium Phosphorus Total Bilirubin GGT Triglycerides Urine Glucose (UA) 50 A 06/26/18 06/26/18 06/26/18 16:25 13:02 13:02 WBC MPV Gran % Lymph % (Auto) Gran # Lymph # (Auto) [place] # (Auto) Seg Neutrophils % Lymphocytes % POC Sodium 117 L* Sodium 115 L* 114 L* POC Potassium 3.2 L Potassium 3.2 L POC Chloride 77 L Chloride 77 L 77 L Carbon Dioxide Anion Gap Creatinine 0.5 L POC Creatinine 0.5 L Glucose 163 H 131 H POC Glucose 124 H Osmolality Uric Acid Calcium 8.5 L POC WB Ioniz Calcium 1.12 L Phosphorus Total Bilirubin GGT Triglycerides Urine Glucose (UA) 06/26/18 06/26/18 06/26/18 10:46 10:42 08:40 WBC MPV Gran % Lymph % (Auto) Gran # Lymph # (Auto) [place] # (Auto) Seg Neutrophils % Lymphocytes % POC Sodium 117 L* 118 L* Sodium 115 L* 114 L* POC Potassium Potassium POC Chloride 78 L 78 L Chloride 78 L 77 L Carbon Dioxide Anion Gap Creatinine POC Creatinine 0.5 L 0.5 L Glucose 136 H 122 H POC Glucose 135 H 121 H Osmolality Uric Acid Calcium POC WB Ioniz Calcium 1.05 L 1.12 L Phosphorus Total Bilirubin 1.1 H GGT Triglycerides Urine Glucose (UA) 06/26/18 06/26/18 06/25/18 04:05 04:05 22:12 WBC 14.1 H MPV 7.1 L Gran % Lymph % (Auto) 15.2 L Gran # 10.7 H Lymph # (Auto) [place] # (Auto) 1.2 H Seg Neutrophils % Lymphocytes % POC Sodium Sodium 116 L* 113 L* POC Potassium Potassium 3.2 L 2.2 L* POC Chloride Chloride 77 L 72 L Carbon Dioxide Anion Gap Creatinine 0.5 L 0.5 L POC Creatinine Glucose 112 H POC Glucose Osmolality Uric Acid Calcium POC WB Ioniz Calcium Phosphorus 2.2 L Total Bilirubin 1.1 H GGT 41 H Triglycerides 196 H Urine Glucose (UA) 06/25/18 06/25/18 06/25/18 18:45 18:45 18:15 WBC MPV Gran % Lymph % (Auto) Gran # Lymph # (Auto) [place] # (Auto) Seg Neutrophils % 81 H Lymphocytes % 11 L POC Sodium Sodium 112 L* POC Potassium Potassium 2.9 L* POC Chloride Chloride 67 L Carbon Dioxide Anion Gap 21.0 H Creatinine 0.5 L POC Creatinine Glucose 154 H POC Glucose Osmolality 238 L Uric Acid Calcium POC WB Ioniz Calcium Phosphorus 2.5 L Total Bilirubin 1.2 H GGT Triglycerides Urine Glucose (UA) 50 A 06/25/18 06/25/18 16:16 16:16 WBC 13.9 H MPV 7.3 L Gran % 86.7 H Lymph % (Auto) 7.6 L Gran # 12.0 H Lymph # (Auto) 1.0 L [place] # (Auto) Seg Neutrophils % Lymphocytes % POC Sodium Sodium 110 L* POC Potassium Potassium 2.7 L* POC Chloride Chloride 67 L Carbon Dioxide Anion Gap Creatinine POC Creatinine Glucose 158 H POC Glucose Osmolality Uric Acid Calcium POC WB Ioniz Calcium Phosphorus Total Bilirubin 1.1 H GGT Triglycerides Urine Glucose (UA) Meds: Medications Acetaminophen (Tylenol) 650 mg PO Q6HP PRN PRN Reason: PAIN/FEVER > 101 Hydrocodone Bitart/Acetaminophen ([place] 5/325mg) 1 tab PO Q4HP PRN PRN Reason: PAIN LEVEL 3-6 Amlodipine Besylate (Norvasc) 5 mg PO DAILY [facility] Last Admin: 06/26/18 09:56 Dose: 5 mg Dextrose (Dextrose 50%) 0 ml IV UD PRN PRN Reason: Hypoglycemia Diagnostic Test (Pha) (Accu-Chek) 1 each FS [facility] Last Admin: 06/26/18 21:30 Dose: 1 each Diphenhydramine HCl (Benad[place]) 25 mg PO HSP PRN PRN Reason: Insomnia Docusate Sodium (Colace) 100 mg PO BID [facility] Last Admin: 06/26/18 22:16 Dose: 100 mg Enoxaparin Sodium (Lovenox) 40 mg SQ DAILY [facility] Last Admin: 06/26/18 09:56 Dose: 40 mg Famotidine (Pepcid) 20 mg IV Q12 [facility] Last Admin: 06/26/18 22:16 Dose: 20 mg Glucose (Insta-Glucose) 15 gm PO PRN PRN PRN Reason: Hypoglycemia Hydralazine HCl (Apresoline) 0 mg IV Q2HP PRN PRN Reason: Hypertension Last Admin: 06/26/18 03:50 Dose: 20 mg Insulin Human Lispro (Humalog) 0 unit SQ [facility]; Protocol Last Admin: 06/26/18 21:30 Dose: Not Given Iron Carb/Multivit/Certified Medical Assistant/Folic Acid (Multivitamin W/Minerals) 1 tab PO DAILY [facility] Last Admin: 06/26/18 09:56 Dose: 1 tab Losartan Potassium (Cozaar) 50 mg PO DAILY@1200 [facility] Morphine Sulfate (Morphine) 2 mg IV Q3HP PRN PRN Reason: PAIN LEVEL > 6 Last Admin: 06/26/18 15:14 Dose: 2 mg Ondansetron HCl (Zofran) 4 mg IV Q4HP PRN PRN Reason: Nausea And Vomiting Last Admin: 06/26/18 07:51 Dose: 4 mg Prochlorperazine Maleate (Compazine) 12.5 mg CO Q12HP PRN PRN Reason: Nausea And Vomiting Promethazine HCl (Phenergan) 12.5 mg PO Q6HP PRN PRN Reason: Nausea And Vomiting Last Admin: 06/26/18 05:04 Dose: 12.5 mg Sodium Chloride (Saline Flush) 10 ml IV Q8 [facility] Last Admin: 06/26/18 22:17 Dose: 10 ml Sodium Chloride (Sodium Chloride) 1 gm PO TID [facility] Last Admin: 06/26/18 22:16 Dose: 1 gm Medical - PN: A/P - Time Spent With Patient Total time spent is greater than 50% in coordination of care (as documented) at patient's floor/unit and/or counseling patient: - Narrative A/P Narrative: A: *Hyponatremia, Chronic: Likely secondary to multiple diuretics and poor oral intake, but after NS IV hydration resulting in mild improvement in Na, is now presenting as SIADH -TSH/cortisol ok, urine sodium assay hampered by sodium wasting diuretics -now improving again *Hypokalemia: Secondary to same above *Leukocytosis: Possibly reactive, afebrile, no respiratory symptoms. She did just finish a course of antibiotics for foot abscess infection which is improved -no bandemia, PCT low, healing abscess on foot looks good -resolved w/o intervention *Diabetes with neuropathy: *Hypertension: She is on Norvasc/Coreg/losartan/Aldactone and chlorthalidone at home *GERD *recent rib fracture: P: -fluid restrict, salt tabs -IV lasix today -potassium replete -serial BMP -Antiemetics, pain control -SSI, hold metformin - -ppx: lovenox Medical - PN: Qual - VTE Deep Vein Thrombosis/Pulmonary Embolism Present on Admission: No
[2018-06-27] MEDS: FUROSEMIDE 40 MG/4 ML VIAL IV SCH ×2 (07:59→14:14)
[2018-06-27] MEDS: 0.9 % SODIUM CHLORIDE 10 ML SYRINGE IV SCH ×3 (07:59→21:53)
[2018-06-27] MEDS: INSULIN LISPRO 1 UNIT/0.01 ML UNIT SQ SCH ×4 (08:12→20:47)
[2018-06-27] MEDS: ENOXAPARIN 40 MG/0.4 ML SYRINGE SQ SCH (09:23)
[2018-06-27] MEDS: FAMOTIDINE/PF 20 MG/2 ML VIAL IV SCH ×2 (09:23→20:46)
[2018-06-27] MEDS: MULTIVIT,THER IRON,CA,FA & MIN 1 TABLET PO SCH (09:24)
[2018-06-27] MEDS: amLODIPine 5 MG TABLET PO SCH (09:24)
[2018-06-27] MEDS: DOCUSATE SODIUM 100 MG CAPSULE PO SCH ×2 (09:24→20:47)
[2018-06-27] MEDS: SODIUM CHLORIDE 1 GM TABLET PO SCH ×3 (09:24→20:46)
[2018-06-27] MEDS ORDERED: LOSARTAN 50 MG TABLET PO SCH (12:00)
[2018-06-27 12:49] LABS: Blood Urea Nitrogen 9 mg/dl (8-23)
[2018-06-27] MEDS: LIDOCAINE PATCH TOPICAL SCH (12:56)
[2018-06-27] MEDS ORDERED: POTASSIUM CHLORIDE 20 MEQ TABLET PO ONE ×2 (13:05→19:56)
[2018-06-27] MEDS ORDERED: FUROSEMIDE 20 MG TABLET PO SCH (16:00)
[2018-06-27] MEDS ORDERED: FUROSEMIDE 40 MG/4 ML VIAL IV SCH (16:00)
[2018-06-27 17:13] LABS: Blood Urea Nitrogen 9 mg/dl (8-23)
[2018-06-27] MEDS ORDERED: SODIUM CHLORIDE 3 % 500 ML IV ONE (17:25)
[2018-06-27] MEDS ORDERED: SODIUM CHLORIDE 3 % 200 ML IV SCH (17:30)
[2018-06-27] MEDS: POTASSIUM CHLORIDE 20 MEQ TABLET PO SCH (19:18)
[2018-06-27 19:47] LABS: Blood Urea Nitrogen 9 mg/dl (8-23)
[2018-06-27] MEDS ORDERED: NEUTRA PHOS 1 PACKET PO ONE (19:56)
[2018-06-27 22:17] LABS: Blood Urea Nitrogen 8 mg/dl (8-23)
[2018-06-27] MEDS ORDERED: SODIUM CHLORIDE 3 % 150 ML IV SCH (23:15)
[2018-06-28] MEDS: 0.9 % SODIUM CHLORIDE 10 ML SYRINGE IV SCH ×3 (05:21→22:01)
[2018-06-28 06:12] LABS: ALT/SGPT 16 U/l (0-40); Albumin 3.6 gm/dL (3.2-5.2); Albumin/Globulin Ratio 1.2 (1.0-2.3); Alkaline Phosphatase 93 U/L (39-117); Bilirubin,Direct 0.3 mg/dL (0.0-0.3); Blood Urea Nitrogen 9 mg/dl (8-23); Gamma Glutamyl Transpeptidase 38 U/L (5-36)
--- NOTE | 2018-06-28 07:21 | Internal Med Progress Note ---
Medical - PN: Subj Patient information: Note initiated : 06/28/18 at 7:14 am Service Date, if different from initiated Date: [] Patient: Magy Barron a 72 y/o F admitted on 06/25/18 for nausea. Chief Complaint: [] Interval history: Ms. Barron is a 72 year old F Who presents with severe weakness and nausea vomiting. Patient states Friday or she noticed her left rib pain and gradually got worse for the next couple days she finally went in Friday to the ER and was found to have left rib fracture. There is no trauma she did have a cold and had been coughing but does not recall what might of caused the fracture. She was given some Boles and sent home. On the way home she had a bout of emesis. She has had nausea vomiting since since initial pain from the rib fracture she had poor oral intake. She saw her primary care provider switched from hydrocodone to tramadol as there is concern that the hydrocodone was causing the nausea. However when probing her further she does state that the nausea was there before she went to the ER. She also has sciatica and received pain injections for that. She recently finished regimen of Cipro for a abscess on her foot. Today patient felt lightheaded and very weak and now slid herself to the ground. She was on the ground for several hours before came home found her. She denies abdominal pain or diarrhea. No inciting events for the nausea. No abnormal eating habits. Most recent medication change was changed from hydrochlorothiazide to chlorthalidone when she last saw Dr. Briggs 6 months ago. She is also on spironolactone. In the ER she is found to have a sodium of 110 and potassium 2.7. Chest x-ray unremarkable. 06/26 States she got about an hour worth of sleep last night. Nausea is present but improved from last night. No vomiting no other pains or complaints. The abscess on her right foot on the ball that she was treated with Cipro for looks good. Currently having lab issues with the sodium level unfortunately, and quite disconcerting in this patient's scenario. Stat chemistries are taking 2 hours to get back so a Chem-8 was done to expedite lab return and BMP was ordered at the same time to correlate. The chem-8 showed a sodium of 118 and when the BMP sodium finally came back it had a sodium of 114 -these numbers each give me a completely different path of treatment. Discussed with lab and lab is coming to repeat labs stat, currently in a holding pattern of what direction to take in a time sensitive scenario. 06/27 Slept okay last night. Nausea is improving. Has rib pain. Sodium improving. No other new complaints. No overnight events 06/28 Had felt a little feverish last night, but otherwise feeling better. She has not had any nausea/vomiting. She does have her usual rib pain which appears to be mild at this time. She does note that she was on hydrochlorothiazide in the past and 5 or 6 months ago she was changed to chlorthalidone and a follow-up lab by her PCP did reveal a low sodium. She was asked to increase her salt intake. She says she has not had any labs since then. Review of Systems: denies headache/fever/chills/vomiting/chest or abdominal pain/cough/dyspnea/ diarrhea. Otherwise see above. - Constitutional Vitals: Vital Signs Temp Pulse Resp BP Pulse Ox 97.9 F 77 13 98/55 98 06/28/18 05:13 06/27/18 19:02 06/28/18 06:30 06/28/18 06:01 06/28/18 06:01 Period Temp Pulse Resp BP Sys/Dewitt Pulse Ox Last 24 Hr 97.8 F-100.0 F 71-81 11-21 98-155/54-104 93-99 Intake and Output 06/27/18 06/28/18 06/28/18 21:59 05:59 13:59 Intake Total 240 / 240 300 / 300 Output Total 1700 / 1700 400 / 400 Balance -1460 / -1460 -100 / -100 Weight 86.183 kg Intake & Output: Intake & Output 06/27/18 06/28/18 06/28/18 21:59 05:59 13:59 Intake Total 240 / 240 300 / 300 Output Total 1700 / 1700 400 / 400 Balance -1460 / -1460 -100 / -100 Weight 86.183 kg Intake: Oral 240 / 240 300 / 300 Output: Urine Catheter Amount 1325 / 1325 400 / 400 Void Amount 375 / 375 Other: Meal Dinner Percent of Meal Consumed 100% Feeding Ability Independent Urine Appearance Clear Clear Uretheral (Eller) Clear Urine Color Dark Yellow Bright Yellow Uretheral (Eller) Bright Yellow Urine Odor Normal Stool Consistency Loose # Emeses 2 Exam: General: Alert, Awake, No acute Distress Eyes/N/T: EOMI, Head/Neck: neck supple, CV: RRR, No murmurs, normal s1/s2 Pulm: Clear b/l, no wheezing/rhonchi/rales Abd: soft, nontender, +BS x4 Ext: no clubbing/cyanosis/edema Neuro: Alert, no focal deficits, moves all extremities, Skin: warm/dry Medical - PN: Obj Da - Labs CBC & Chem 7: 06/27/18 03:51 06/28/18 04:15 Labs: Abnormal Lab Results 06/28/18 06/27/18 06/27/18 04:15 21:18 18:26 WBC MPV Gran % Lymph % (Auto) Gran # Lymph # (Auto) [facility] # (Auto) Seg Neutrophils % Lymphocytes % POC Sodium Sodium 123 L 118 L* 117 L* POC Potassium Potassium 3.1 L POC Chloride Chloride 88 L 77 L 76 L Carbon Dioxide Anion Gap 17.0 H Creatinine 0.5 L 0.5 L POC Creatinine Glucose 140 H 172 H POC Glucose Osmolality Uric Acid 2.0 L Calcium POC WB Ioniz Calcium Phosphorus 2.6 L Total Bilirubin 1.7 H GGT 38 H Triglycerides Urine Glucose (UA) 06/27/18 06/27/18 06/27/18 15:54 12:03 03:51 WBC MPV Gran % Lymph % (Auto) Gran # Lymph # (Auto) [facility] # (Auto) Seg Neutrophils % Lymphocytes % POC Sodium Sodium 115 L* 117 L* 117 L* POC Potassium Potassium 3.2 L 2.8 L* 3.1 L POC Chloride Chloride 75 L 76 L 79 L Carbon Dioxide Anion Gap Creatinine 0.5 L 0.5 L 0.5 L POC Creatinine Glucose 131 H 112 H POC Glucose Osmolality Uric Acid 2.2 L Calcium POC WB Ioniz Calcium Phosphorus 2.4 L Total Bilirubin 1.5 H GGT Triglycerides 161 H Urine Glucose (UA) 06/27/18 06/27/18 06/26/18 03:51 00:18 20:00 WBC MPV 7.3 L Gran % Lymph % (Auto) 14.2 L Gran # Lymph # (Auto) [facility] # (Auto) 1.1 H Seg Neutrophils % Lymphocytes % POC Sodium Sodium 117 L* 114 L* POC Potassium Potassium 3.2 L POC Chloride Chloride 79 L 80 L Carbon Dioxide 21 L Anion Gap Creatinine 0.5 L 0.5 L POC Creatinine Glucose 117 H 135 H POC Glucose Osmolality Uric Acid Calcium POC WB Ioniz Calcium Phosphorus Total Bilirubin GGT Triglycerides Urine Glucose (UA) 06/26/18 06/26/18 06/26/18 17:56 16:30 16:25 WBC MPV Gran % Lymph % (Auto) Gran # Lymph # (Auto) [facility] # (Auto) Seg Neutrophils % Lymphocytes % POC Sodium Sodium 115 L* POC Potassium Potassium POC Chloride Chloride 77 L Carbon Dioxide Anion Gap Creatinine POC Creatinine Glucose 163 H POC Glucose Osmolality 244 L Uric Acid Calcium 8.5 L POC WB Ioniz Calcium Phosphorus Total Bilirubin GGT Triglycerides Urine Glucose (UA) 50 A 06/26/18 06/26/18 06/26/18 13:02 13:02 10:46 WBC MPV Gran % Lymph % (Auto) Gran # Lymph # (Auto) [facility] # (Auto) Seg Neutrophils % Lymphocytes % POC Sodium 117 L* 117 L* Sodium 114 L* POC Potassium 3.2 L Potassium 3.2 L POC Chloride 77 L 78 L Chloride 77 L Carbon Dioxide Anion Gap Creatinine 0.5 L POC Creatinine 0.5 L 0.5 L Glucose 131 H POC Glucose 124 H 135 H Osmolality Uric Acid Calcium POC WB Ioniz Calcium 1.12 L 1.05 L Phosphorus Total Bilirubin GGT Triglycerides Urine Glucose (UA) 06/26/18 06/26/18 06/26/18 10:42 08:40 04:05 WBC MPV Gran % Lymph % (Auto) Gran # Lymph # (Auto) [facility] # (Auto) Seg Neutrophils % Lymphocytes % POC Sodium 118 L* Sodium 115 L* 114 L* 116 L* POC Potassium Potassium 3.2 L POC Chloride 78 L Chloride 78 L 77 L 77 L Carbon Dioxide Anion Gap Creatinine 0.5 L POC Creatinine 0.5 L Glucose 136 H 122 H POC Glucose 121 H Osmolality Uric Acid Calcium POC WB Ioniz Calcium 1.12 L Phosphorus 2.2 L Total Bilirubin 1.1 H 1.1 H GGT 41 H Triglycerides 196 H Urine Glucose (UA) 06/26/18 06/25/18 06/25/18 04:05 22:12 18:45 WBC 14.1 H MPV 7.1 L Gran % Lymph % (Auto) 15.2 L Gran # 10.7 H Lymph # (Auto) [facility] # (Auto) 1.2 H Seg Neutrophils % Lymphocytes % POC Sodium Sodium 113 L* POC Potassium Potassium 2.2 L* POC Chloride Chloride 72 L Carbon Dioxide Anion Gap Creatinine 0.5 L POC Creatinine Glucose 112 H POC Glucose Osmolality Uric Acid Calcium POC WB Ioniz Calcium Phosphorus Total Bilirubin GGT Triglycerides Urine Glucose (UA) 50 A 06/25/18 06/25/18 06/25/18 18:45 18:15 16:16 WBC MPV Gran % Lymph % (Auto) Gran # Lymph # (Auto) [facility] # (Auto) Seg Neutrophils % 81 H Lymphocytes % 11 L POC Sodium Sodium 112 L* 110 L* POC Potassium Potassium 2.9 L* 2.7 L* POC Chloride Chloride 67 L 67 L Carbon Dioxide Anion Gap 21.0 H Creatinine 0.5 L POC Creatinine Glucose 154 H 158 H POC Glucose Osmolality 238 L Uric Acid Calcium POC WB Ioniz Calcium Phosphorus 2.5 L Total Bilirubin 1.2 H 1.1 H GGT Triglycerides Urine Glucose (UA) 06/25/18 16:16 WBC 13.9 H MPV 7.3 L Gran % 86.7 H Lymph % (Auto) 7.6 L Gran # 12.0 H Lymph # (Auto) 1.[address] [facility] # (Auto) Seg Neutrophils % Lymphocytes % POC Sodium Sodium POC Potassium Potassium POC Chloride Chloride Carbon Dioxide Anion Gap Creatinine POC Creatinine Glucose POC Glucose Osmolality Uric Acid Calcium POC WB Ioniz Calcium Phosphorus Total Bilirubin GGT Triglycerides Urine Glucose (UA) Meds: Medications Acetaminophen (Tylenol) 650 mg PO Q6HP PRN PRN Reason: PAIN/FEVER > 101 Last Admin: 06/28/18 04:28 Dose: 650 mg Hydrocodone Bitart/Acetaminophen (Boles 5/325mg) 1 tab PO Q4HP PRN PRN Reason: PAIN LEVEL 3-6 Amlodipine Besylate (Norvasc) 5 mg PO DAILY [facility] Last Admin: 06/27/18 09:24 Dose: 5 mg Dextrose (Dextrose 50%) 0 ml IV UD PRN PRN Reason: Hypoglycemia Diagnostic Test (Pha) (Accu-Chek) 1 each FS ACHS [facility] Last Admin: 06/27/18 20:47 Dose: 1 each Diphenhydramine HCl (Benadryl) 25 mg PO HSP PRN PRN Reason: Insomnia Docusate Sodium (Colace) 100 mg PO BID [facility] Last Admin: 06/27/18 20:47 Dose: Not Given Enoxaparin Sodium (Lovenox) 40 mg SQ DAILY [facility] Last Admin: 06/27/18 09:23 Dose: 40 mg Famotidine (Pepcid) 20 mg IV Q12 [facility] Last Admin: 06/27/18 20:46 Dose: 20 mg Furosemide (Lasix) 20 mg PO BIDD [facility] Last Admin: 06/27/18 17:31 Dose: 20 mg Glucose (Insta-Glucose) 15 gm PO PRN PRN PRN Reason: Hypoglycemia Hydralazine HCl (Apresoline) 0 mg IV Q2HP PRN PRN Reason: Hypertension Last Admin: 06/26/18 03:50 Dose: 20 mg Sodium Chloride (Sodium Chloride 3%) 200 mls @ 50 mls/hr IV ONCE [facility] Last Admin: 06/27/18 17:35 Dose: Not Given Sodium Chloride (Sodium Chloride 3%) 150 mls @ 50 mls/hr IV ONCE [facility] Last Admin: 06/27/18 23:15 Dose: 50 mls/hr Insulin Human Lispro (Humalog) 0 unit SQ ACHS [facility]; Protocol Last Admin: 06/27/18 20:47 Dose: Not Given Iron Carb/Multivit/Classroom Technology Technician/Folic Acid (Multivitamin W/Minerals) 1 tab PO DAILY [facility] Last Admin: 06/27/18 09:24 Dose: 1 tab Lidocaine (Lidoderm) 1 patch TOPICAL DAILY@1000 JEANNIE Last Admin: 06/27/18 12:56 Dose: 1 patch Losartan Potassium (Cozaar) 50 mg PO DAILY@1200 [facility] Last Admin: 06/27/18 13:00 Dose: 50 mg Morphine Sulfate (Morphine) 2 mg IV Q3HP PRN PRN Reason: PAIN LEVEL > 6 Last Admin: 06/27/18 20:46 Dose: 2 mg Ondansetron HCl (Zofran) 4 mg IV Q4HP PRN PRN Reason: Nausea And Vomiting Last Admin: 06/26/18 07:51 Dose: 4 mg Potassium Chloride (Kdur) 40 meq PO TIDCC [facility] Stop: 06/28/18 12:01 Last Admin: 06/27/18 19:18 Dose: 40 meq Prochlorperazine Maleate (Compazine) 12.5 mg ND Q12HP PRN PRN Reason: Nausea And Vomiting Promethazine HCl (Phenergan) 12.5 mg PO Q6HP PRN PRN Reason: Nausea And Vomiting Last Admin: 06/26/18 05:04 Dose: 12.5 mg Sodium Chloride (Saline Flush) 10 ml IV Q8 [facility] Last Admin: 06/28/18 05:21 Dose: 10 ml Sodium Chloride (Sodium Chloride) 2 gm PO TID [facility] Last Admin: 06/27/18 20:46 Dose: 2 gm Medical - PN: A/P - Time Spent With Patient Total time spent is greater than 50% in coordination of care (as documented) at patient's floor/unit and/or counseling patient: - Narrative A/P Narrative: A: *Hyponatremia, Chronic: Likely secondary to multiple diuretics and poor oral intake, but after NS IV hydration resulting in only mild improvement in Na and then leveled, is now presenting as SIADH -TSH/cortisol ok, initial urine sodium assay hampered by sodium wasting diuretics -resistant at times with treatment and required 3% -CT chest done for resistant SIADH and nontraumatic rib fx to evaluate for any malignancy - results unremarkable *Hypokalemia: Secondary to same above, -Improved *Leukocytosis: Possibly reactive, afebrile, no respiratory symptoms. She did just finish a course of antibiotics for foot abscess infection which is improved -no bandemia, PCT low, healing abscess on foot looks good -resolved w/o intervention *Diabetes with neuropathy: *Hypertension: She is on Norvasc/Coreg/losartan/Aldactone and chlorthalidone at home *GERD *recent rib fracture: P: -fluid restrict, salt tabs -potassium replete -serial BMP -Antiemetics, pain control -SSI, hold metformin -cont norvasc, hold home BB/ARB for lower BP's recently -ppx: lovenox Medical - PN: Qual - VTE Deep Vein Thrombosis/Pulmonary Embolism Present on Admission: No
[2018-06-28] MEDS: POTASSIUM CHLORIDE 20 MEQ TABLET PO SCH ×2 (07:51→12:19)
[2018-06-28] MEDS ORDERED: IOPAMIDOL 100 ML BOTTLE IV ONE (08:20)
[2018-06-28] MEDS: INSULIN LISPRO 1 UNIT/0.01 ML UNIT SQ SCH ×4 (08:34→21:59)
--- NOTE | 2018-06-28 08:57 | Cat Scan Report ---
CLINICAL INFORMATION: SIADH. Possible occult tumor COMPARISON: Previous chest x-ray dated 06/25/2018. Previous left ribs dated 06/21/2018 TECHNIQUE: Axial contrast enhanced images through the chest. Sagittally and coronally reformatted images. MIP reformatted images. 70 mL contrast material injected intravenously. FINDINGS: Previous left rib x-rays demonstrated a healing sixth rib fracture. This is not well visualized on CT scan. There are no acute fractures. No lytic lesions. Sternum is negative. There is severe thoracolumbar scoliosis. Vertebral bodies appear intact without destructive lesions. No paraspinal mass. There is multilevel degenerative disc disease and facet arthropathy. There are linear pulmonary parenchymal densities in the left lower lobe. Appearance is consistent with atelectasis. No discrete mass. No consolidation. No evidence for pneumonia. No significant pleural effusion. There is a large hiatal hernia. Mai and mediastinum are otherwise negative. No pathologic adenopathy. There are surgical clips in the right axilla and right breast. Upper abdomen is negative IMPRESSION: 1. Left lower lobe volume loss 2. No pulmonary parenchymal mass. No parenchymal consolidation 3. Large hiatal hernia. 4. Severe thoracolumbar scoliosis 5. No detectable rib fracture. No lytic lesion. 6. Postoperative abnormality in the right axilla and breast The exam was performed using radiation dose optimization techniques including, but not limited to, automated exposure control, adjustment of the mA and/or kV according to patient size and use of iterative reconstruction technique. Interpreted and Authenticated by: Boni Zheng 06/28/18
[2018-06-28] MEDS: SODIUM CHLORIDE 1 GM TABLET PO SCH ×3 (09:23→20:33)
[2018-06-28] MEDS: FAMOTIDINE/PF 20 MG/2 ML VIAL IV SCH ×2 (09:23→20:29)
[2018-06-28] MEDS: ENOXAPARIN 40 MG/0.4 ML SYRINGE SQ SCH (09:23)
[2018-06-28] MEDS: MULTIVIT,THER IRON,CA,FA & MIN 1 TABLET PO SCH (09:23)
[2018-06-28] MEDS: DOCUSATE SODIUM 100 MG CAPSULE PO SCH ×2 (09:24→20:27)
[2018-06-28 10:53] LABS: Blood Urea Nitrogen 11 mg/dl (8-23)
[2018-06-28] MEDS ORDERED: FUROSEMIDE 20 MG/2 ML VIAL IV ONE (11:06)
[2018-06-28] MEDS: amLODIPine 5 MG TABLET PO SCH (11:12)
[2018-06-28] MEDS: LIDOCAINE PATCH TOPICAL SCH (11:12)
[2018-06-28] MEDS: FUROSEMIDE 40 MG/4 ML VIAL IV SCH ×2 (11:59→15:50)
[2018-06-28] MEDS: ONDANSETRON 4 MG/2 ML VIAL IV PRN ×2 (15:11→20:29)
[2018-06-28] MEDS ORDERED: MAGNESIUM SULFATE 2 GM/50 ML BAG IV ONE (17:31)
[2018-06-28 17:35] LABS: Blood Urea Nitrogen 9 mg/dl (8-23)
[2018-06-28] MEDS: CARVEDILOL 6.25 MG TABLET PO SCH (18:09)
[2018-06-28 18:23] LABS: Osmolality,Urine 315 mOsm/kg (80-1000)
[2018-06-28] MEDS: HYDROcodone/APAP 5/325MG TABLET PO PRN (20:27)
[2018-06-28 22:07] LABS: Blood Urea Nitrogen 13 mg/dl (8-23)
[2018-06-29] MEDS: HYDROcodone/APAP 5/325MG TABLET PO PRN ×2 (00:06→04:44)
[2018-06-29 04:06] LABS: Mean Cell Volume 86.8 fL (80.0-100.0); Mean Corpuscular HGB Conc 33.6 g/dL (31.0-36.0); Platelet Count 380 K/mcL (140-440); RBC 4.55 M/mcL (4.00-5.20)
[2018-06-29 04:14] LABS: ALT/SGPT 17 U/l (0-40); Albumin 3.6 gm/dL (3.2-5.2); Albumin/Globulin Ratio 1.2 (1.0-2.3); Alkaline Phosphatase 94 U/L (39-117); Bilirubin,Direct < 0.2 mg/dL (0.0-0.3); Blood Urea Nitrogen 16 mg/dl (8-23); Gamma Glutamyl Transpeptidase 42 U/L (5-36); Uric Acid 2.9 mg/dL (2.5-8.0)
[2018-06-29 04:20] LABS: Lymphocytes % 30 % (15-49); Monocytes % (Manual) 7 % (1-12); Platelet Estimate NORMAL (NORMAL); RBC Morphology NORMAL (NORMAL); Segmented Neutrophils % 63 % (38-78)
[2018-06-29] MEDS: 0.9 % SODIUM CHLORIDE 10 ML SYRINGE IV SCH ×3 (05:25→20:19)
[2018-06-29] MEDS: FUROSEMIDE 40 MG/4 ML VIAL IV SCH ×2 (07:58→16:21)
[2018-06-29] MEDS: CARVEDILOL 6.25 MG TABLET PO SCH ×2 (07:58→18:01)
[2018-06-29] MEDS: INSULIN LISPRO 1 UNIT/0.01 ML UNIT SQ SCH ×4 (08:13→20:36)
[2018-06-29] MEDS: FAMOTIDINE/PF 20 MG/2 ML VIAL IV SCH ×2 (09:19→20:19)
[2018-06-29] MEDS: SODIUM CHLORIDE 1 GM TABLET PO SCH ×2 (09:19→20:19)
[2018-06-29] MEDS: amLODIPine 5 MG TABLET PO SCH (09:19)
[2018-06-29] MEDS: MULTIVIT,THER IRON,CA,FA & MIN 1 TABLET PO SCH (09:19)
[2018-06-29] MEDS: DOCUSATE SODIUM 100 MG CAPSULE PO SCH ×2 (09:20→20:19)
[2018-06-29] MEDS: ENOXAPARIN 40 MG/0.4 ML SYRINGE SQ SCH (09:20)
[2018-06-29] MEDS: LIDOCAINE PATCH TOPICAL SCH (09:39)
[2018-06-29] MEDS ORDERED: ACETAMINOPHEN 325 MG TABLET PO PRN (10:45)
[2018-06-29] MEDS ORDERED: hydrALAZINE 20 MG/ML VIAL IV PRN (10:45)
[2018-06-29] MEDS ORDERED: PROCHLORPERAZINE 25 MG SUPP.RECT PR PRN (10:45)
[2018-06-29] MEDS ORDERED: DEXTROSE 50% 50 ML VIAL IV PRN (10:45)
[2018-06-29] MEDS ORDERED: ONDANSETRON 4 MG/2 ML VIAL IV PRN (10:45)
[2018-06-29] MEDS ORDERED: PROMETHAZINE 25 MG TABLET PO PRN (10:45)
[2018-06-29] MEDS ORDERED: HYDROcodone/APAP 5/325MG TABLET PO PRN (10:45)
[2018-06-29] MEDS ORDERED: DEXTROSE 31 GM ORAL.SUSP PO PRN (10:45)
[2018-06-29 11:11] LABS: Blood Urea Nitrogen 18 mg/dl (8-23)
[2018-06-29] MEDS ORDERED: SODIUM CHLORIDE 1 GM TABLET PO SCH (15:00)
--- NOTE | 2018-06-29 15:16 | Nephrology Consult Note ---
History of Present Illness - Reason for Consult Patient information: Note initiated : 06/29/18 at 3:12 pm Patient: Magy Barron 72 y/o F admitted on 06/25/18 for nausea Consult date: 06/29/18 hyponatremia Requesting physician: Arsen Alan - Chief Complaint Nausea - History of Present Illness Magy Barron is a 72 year old female with hypertension, diabetes mellitus type 2 and hyponatremia, admitted for nausea. She reports history of hyponatremia since this summer and being told increasing salt intake. She did not a see a cooler room worker in the past. Review of Systems Constitutional: no anorexia, no weight loss Nose, mouth and throat: no nasal congestion, no sore throat Cardiovascular: no chest pain, no palpatations Respiratory: dyspnea, pain with cough Gastrointestinal: nausea, no diarrhea Genitourinary: no dysuria, no hematuria Integumentary: no rash, no wounds Neurological: no confusion, no focal weakness Psychiatric: no anxiety, no panic attacks Endocrine: no cold intolerance, no heat intolerance Hematologic/Lymphatic: no easy bleeding, no easy bruising Allergic/Immunologic: no tongue swelling, no uticaria Past History Past medical history: Hypertension Diabetes mellitus type 2 Hyponatremia Past surgical history: Left total hip arthroplasty Past family history: No family history of hyponatremia Past social history: No history of tobacco or significant beer drinking Medications and Allergies Home Medications Medication Instructions Recorded Confirmed Type Carvedilol [Coreg] 25 mg PO BID 06/20/16 06/25/18 History Cyanocobalamin [Vitamin B12] 1,000 mcg IM Q21D 06/20/16 06/25/18 History Fish Oil 1,000 mg PO BID 06/20/16 06/25/18 History Losartan Potassium [Cozaar] 100 mg PO DAILY@1200 06/20/16 06/25/18 History Multivit with Iron-Minerals 1 tab PO DAILY 06/20/16 06/25/18 History [Centravites 50 Plus] Omeprazole [PriLOSEC] 20 mg PO ACB 06/20/16 06/25/18 History Spironolactone [Aldactone] 25 mg PO DAILY 06/20/16 06/25/18 History amLODIPine [Norvasc] 5 mg PO DAILY 06/20/16 06/25/18 History metFORMIN HCL [Glucophage Xr] 500 mg PO BID 06/20/16 06/25/18 History traMADol [Ultram] 50 mg PO BID 06/20/16 06/25/18 History Chlorthalidone 50 mg PO DAILY 06/25/18 06/25/18 History Allergies Allergy/AdvReac Type Severity Reaction Status Date / Time Erythromycin Base Allergy Mild Diarrhea Verified 06/25/18 15:50 Penicillins AdvReac Unknown Unknown Verified 06/25/18 15:50 Exam - Vital Signs Vital signs: Temp Pulse Resp BP Pulse Ox 97.8 F 87 18 132/77 93 06/29/18 03:26 06/29/18 12:01 06/29/18 13:19 06/29/18 12:01 06/29/18 12:01 - General Appearance General appearance: appears started age EENT: mucous membranes moist Neck: supple Respiratory: clear Cardiology: no edema Gastrointestinal: no tenderness Integumentary: warm and dry Neurologic: no focal deficit, alert and oriented x3 Musculoskeletal: no deformities Psychiatric: mood/affect appropriate, cooperative Results - Lab Results 06/29/18 03:20 06/29/18 10:18 Most recent lab results Calcium 9.4 mg/dl (8.6-10.4) 06/29/18 10:18 Phosphorus 3.8 mg/dL (2.7-4.5) 06/29/18 03:20 Magnesium 2.2 mg/dL (1.6-2.5) 06/29/18 03:20 Assessment and Plan (1) Hyponatremia Hyponatremia, acute on chronic, suspected SIADH, associated with Chlorthalidone use, present on arrival. Work up: Labs on 06/28/18 while on Furosemide: Serum Sodium 123, Urine Osmolality 315 , Urine Sodium 107 Urinalysis on 06/26/18: Yellow, hazy, pH 6.0, SG 1.016, Protein negative, occult blood negative, leukocyte esterase negative. Treatment: Diet regular with 1500 ml fluid restriction. Sodium Chloride 2 g PO BID. Furosemide 20 mg IV BIDD. Recommendations: Continue current management. Avoid IVF including NS. Monitor BMP and urine output. Status: Acute Priority: High
--- NOTE | 2018-06-29 17:37 | Internal Med Progress Note ---
Medical - PN: Subj Patient information: Note initiated : 06/29/18 at 5:35 pm Service Date, if different from initiated Date: [] Patient: Magy Barron a 72 y/o F admitted on 06/25/18 for nausea. Chief Complaint: [] Interval history: Ms. Barron is a 72 year old F Who presents with severe weakness and nausea vomiting. Patient states Friday or she noticed her left rib pain and gradually got worse for the next couple days she finally went in Friday to the ER and was found to have left rib fracture. There is no trauma she did have a cold and had been coughing but does not recall what might of caused the fracture. She was given some [place] and sent home. On the way home she had a bout of emesis. She has had nausea vomiting since since initial pain from the rib fracture she had poor oral intake. She saw her primary care provider switched from hydrocodone to tramadol as there is concern that the hydrocodone was causing the nausea. However when probing her further she does state that the nausea was there before she went to the ER. She also has sciatica and received pain injections for that. She recently finished regimen of Cipro for a abscess on her foot. Today patient felt lightheaded and very weak and now slid herself to the ground. She was on the ground for several hours before came home found her. She denies abdominal pain or diarrhea. No inciting events for the nausea. No abnormal eating habits. Most recent medication change was changed from hydrochlorothiazide to chlorthalidone when she last saw Dr. Briggs 6 months ago. She is also on spironolactone. In the ER she is found to have a sodium of 110 and potassium 2.7. Chest x-ray unremarkable. 06/26 States she got about an hour worth of sleep last night. Nausea is present but improved from last night. No vomiting no other pains or complaints. The abscess on her right foot on the ball that she was treated with Cipro for looks good. Currently having lab issues with the sodium level unfortunately, and quite disconcerting in this patient's scenario. Stat chemistries are taking 2 hours to get back so a Chem-8 was done to expedite lab return and BMP was ordered at the same time to correlate. The chem-8 showed a sodium of 118 and when the BMP sodium finally came back it had a sodium of 114 -these numbers each give me a completely different path of treatment. Discussed with lab and lab is coming to repeat labs stat, currently in a holding pattern of what direction to take in a time sensitive scenario. 06/27 Slept okay last night. Nausea is improving. Has rib pain. Sodium improving. No other new complaints. No overnight events 06/28 Had felt a little feverish last night, but otherwise feeling better. She has not had any nausea/vomiting. She does have her usual rib pain which appears to be mild at this time. She does note that she was on hydrochlorothiazide in the past and 5 or 6 months ago she was changed to chlorthalidone and a follow-up lab by her PCP did reveal a low sodium. She was asked to increase her salt intake. She says she has not had any labs since then. 06/29 Patient seen and examined no acute overnight events or complaints. Heart rate stabilized still has intermittent PVC. Sodium is 124, slowly increased compared to yesterday. Given that sodium has been hovering in this range we will consult nephrology to help manage this and further optimize the patient. DERRICK Eller Transfer patient to [facility] status. Pertinent ROS: Denies headache, dizziness Denies chest pain, palpitations Denies cough or shortness of breath Denies abdominal pain, nausea or vomiting. - Constitutional Vitals: Vital Signs Temp Pulse Resp BP Pulse Ox 98.4 F 87 18 137/73 93 06/29/18 15:34 06/29/18 12:01 06/29/18 15:34 06/29/18 15:34 06/29/18 15:34 Period Temp Pulse Resp BP Sys/Dewitt Pulse Ox Last 24 Hr 97.7 F-99.1 F 66-102 10-21 99-143/55-80 91-99 Intake and Output 06/29/18 06/29/18 06/29/18 05:59 13:59 21:59 Intake Total 200 / 200 840 / 840 Output Total 197 / 197 800 / 800 Balance 3 / 3 -800 / -800 840 / 840 Weight 187 lb 14.4 oz Patient Weight 06/30/18 05:59 Weight 187 lb 14.4 oz Intake & Output: Intake & Output 06/29/18 06/29/18 06/29/18 05:59 13:59 21:59 Intake Total 200 / 200 840 / 840 Output Total 197 / 197 800 / 800 Balance 3 / 3 -800 / -800 840 / 840 Weight 187 lb 14.4 oz Intake: Oral 200 / 200 840 / 840 Output: Urine Catheter Amount 197 / 197 800 / 800 Other: Meal Breakfast Breakfast Percent of Meal Consumed 100% 100% Feeding Ability Assist with Tray Set Up Assist with Tray Set Up Urine Appearance Cloudy Clear Sediment Uretheral (Eller) Cloudy Clear Sediment Urine Color Straw Dark Yellow Uretheral (Eller) Straw Light Divine Exam: Constitutional; Afebrile, cooperative, alert, not in distress. Eyes- No icterus, , No periorbital swelling Ears- Ext ear normal, hearing normal to conversation. Neck- Midline trachea, supple Respiratory system: Air Entry equal on both sides, No crackles or wheezing, no rhonchi. CVS- Rate rhythm regular, S1,S2 heard, no gallop, no rub. Abdomen- Soft nontender abdomen, no organomegaly, no tenderness, no guarding or rigidity, FLOOR TECHNICIAN- AOOx3, moving all extremities, no gross focal deficit noted. Medical - PN: Obj Da - Labs CBC & Chem 7: 06/29/18 03:20 06/29/18 10:18 Labs: Abnormal Lab Results 06/29/18 06/29/18 06/29/18 10:18 03:20 03:20 MPV 7.1 L Lymph % (Auto) [place] # (Auto) Sodium 124 L 126 L Potassium Chloride 84 L 86 L Carbon Dioxide Anion Gap Creatinine Glucose 190 H 110 H Osmolality Uric Acid Phosphorus Total Bilirubin GGT 42 H Triglycerides Urine Glucose (UA) 06/28/18 06/28/18 06/28/18 21:08 16:48 09:55 MPV Lymph % (Auto) [place] # (Auto) Sodium 125 L 123 L 118 L* Potassium Chloride 86 L 82 L 83 L Carbon Dioxide Anion Gap Creatinine Glucose 169 H 146 H 145 H Osmolality Uric Acid Phosphorus Total Bilirubin GGT Triglycerides Urine Glucose (UA) 06/28/18 06/27/18 06/27/18 04:15 21:18 18:26 MPV Lymph % (Auto) [place] # (Auto) Sodium 123 L 118 L* 117 L* Potassium 3.1 L Chloride 88 L 77 L 76 L Carbon Dioxide Anion Gap 17.0 H Creatinine 0.5 L 0.5 L Glucose 140 H 172 H Osmolality Uric Acid 2.0 L Phosphorus 2.6 L Total Bilirubin 1.7 H GGT 38 H Triglycerides Urine Glucose (UA) 06/27/18 06/27/18 06/27/18 15:54 12:03 03:51 MPV Lymph % (Auto) [place] # (Auto) Sodium 115 L* 117 L* 117 L* Potassium 3.2 L 2.8 L* 3.1 L Chloride 75 L 76 L 79 L Carbon Dioxide Anion Gap Creatinine 0.5 L 0.5 L 0.5 L Glucose 131 H 112 H Osmolality Uric Acid 2.2 L Phosphorus 2.4 L Total Bilirubin 1.5 H GGT Triglycerides 161 H Urine Glucose (UA) 06/27/18 06/27/18 06/26/18 03:51 00:18 20:00 MPV 7.3 L Lymph % (Auto) 14.2 L [place] # (Auto) 1.1 H Sodium 117 L* 114 L* Potassium 3.2 L Chloride 79 L 80 L Carbon Dioxide 21 L Anion Gap Creatinine 0.5 L 0.5 L Glucose 117 H 135 H Osmolality Uric Acid Phosphorus Total Bilirubin GGT Triglycerides Urine Glucose (UA) 06/26/18 06/26/18 17:56 16:30 MPV Lymph % (Auto) [place] # (Auto) Sodium Potassium Chloride Carbon Dioxide Anion Gap Creatinine Glucose Osmolality 244 L Uric Acid Phosphorus Total Bilirubin GGT Triglycerides Urine Glucose (UA) 50 A Meds: Medications Acetaminophen (Tylenol) 650 mg PO Q6HP PRN PRN Reason: PAIN/FEVER > 101 Hydrocodone Bitart/Acetaminophen ([place] 5/325mg) 1 tab PO Q4HP PRN PRN Reason: PAIN LEVEL 3-6 Amlodipine Besylate (Norvasc) 5 mg PO DAILY [facility] Carvedilol (Coreg) 6.25 mg PO BIDCC [facility] Dextrose (Dextrose 50%) 0 ml IV UD PRN PRN Reason: Hypoglycemia Diagnostic Test (Pha) (Accu-Chek) 1 each FS ACHS [facility] Last Admin: 06/29/18 16:21 Dose: 1 each Diphenhydramine HCl (Benadryl) 25 mg PO HSP PRN PRN Reason: Insomnia Docusate Sodium (Colace) 100 mg PO BID [facility] Enoxaparin Sodium (Lovenox) 40 mg SQ DAILY [facility] Famotidine (Pepcid) 20 mg IV Q12 [facility] Furosemide (Lasix) 20 mg IV BIDD [facility] Last Admin: 06/29/18 16:21 Dose: 20 mg Glucose (Insta-Glucose) 15 gm PO PRN PRN PRN Reason: Hypoglycemia Heparin Sodium (Porcine) (Heparin Flush) 2 ml IV Q12 [facility] Hydralazine HCl (Apresoline) 0 mg IV Q2HP PRN PRN Reason: Hypertension Insulin Human Lispro (Humalog) 0 unit SQ ACHS [facility]; Protocol Last Admin: 06/29/18 16:24 Dose: Not Given Iron Carb/Multivit/[place]/Folic Acid (Multivitamin W/Minerals) 1 tab PO DAILY [facility] Lidocaine (Lidoderm) 1 patch TOPICAL DAILY@1000 [facility] Morphine Sulfate (Morphine) 2 mg IV Q3HP PRN PRN Reason: PAIN LEVEL > 6 Ondansetron HCl (Zofran) 4 mg IV Q4HP PRN PRN Reason: Nausea And Vomiting Prochlorperazine Maleate (Compazine) 12.5 mg GA Q12HP PRN PRN Reason: Nausea And Vomiting Promethazine HCl (Phenergan) 12.5 mg PO Q6HP PRN PRN Reason: Nausea And Vomiting Sodium Chloride (Saline Flush) 10 ml IV Q8 [facility] Last Admin: 06/29/18 15:00 Dose: 10 ml Sodium Chloride (Sodium Chloride) 2 gm PO BID [facility] Medical - PN: A/P - Time Spent With Patient Total time spent is greater than 50% in coordination of care (as documented) at patient's floor/unit and/or counseling patient: - Narrative A/P Narrative: A: *Hyponatremia, Chronic: Likely secondary to multiple diuretics and poor oral intake, but after NS IV hydration resulting in only mild improvement in Na and then leveled, is now presenting as SIADH -TSH/cortisol ok, initial urine sodium assay hampered by sodium wasting diuretics -resistant at times with treatment and required 3% -CT chest done for resistant SIADH and nontraumatic rib fx to evaluate for any malignancy - results unremarkable *Hypokalemia: Secondary to same above, -Improved *Leukocytosis: Possibly reactive, afebrile, no respiratory symptoms. She did just finish a course of antibiotics for foot abscess infection which is improved -no bandemia, PCT low, healing abscess on foot looks good -resolved w/o intervention *Diabetes with neuropathy: *Hypertension: She is on Norvasc/Coreg/losartan/Aldactone and chlorthalidone at home *GERD *recent rib fracture: P: -fluid restrict, salt tabs -nephrology to consult -potassium replete -serial BMP, given sodium level is now 124, cut back on frequency -MId line placed for better lab access -Antiemetics, pain control -SSI for glucose control, hold metformin -cont norvasc, hold home BB/ARB for lower BP's recently, resume once bp stable x 24 hrs -ppx: [facility] Medical - PN: Qual - VTE Deep Vein Thrombosis/Pulmonary Embolism Present on Admission: No
[2018-06-29 18:51] LABS: Blood Urea Nitrogen 21 mg/dl (8-23)
[2018-06-29] MEDS ORDERED: POTASSIUM CHLORIDE 20 MEQ PACKET PO ONE (18:52)
[2018-06-29] MEDS ORDERED: diphenhydrAMINE 25 MG CAPSULE PO PRN (21:00)
[2018-06-30] MEDS: 0.9 % SODIUM CHLORIDE 10 ML SYRINGE IV SCH ×3 (05:46→20:40)
[2018-06-30 06:11] LABS: ALT/SGPT 18 U/l (0-40); Albumin 3.5 gm/dL (3.2-5.2); Albumin/Globulin Ratio 1.1 (1.0-2.3); Alkaline Phosphatase 96 U/L (39-117); Bilirubin,Direct < 0.2 mg/dL (0.0-0.3); Blood Urea Nitrogen 23 mg/dl (8-23); Gamma Glutamyl Transpeptidase 48 U/L (5-36); Uric Acid 3.3 mg/dL (2.5-8.0)
--- NOTE | 2018-06-30 06:22 | Nephrology Progress Note ---
Subjective Patient information: Note initiated : 06/30/18 at 6:16 am Patient: Magy Barron 72 y/o F admitted on 06/25/18 for nausea. Chief Complaint: Weakness Principal diagnosis: Hyponatremia Pertinent ROS: Weakness No confusion No pain Objective - Vital Signs Vital signs: Vital Signs Temp Pulse Pulse Resp BP BP Pulse Ox 06/30/18 04:25 98.3 F 86 20 135/75 92 06/29/18 23:18 98.2 F 90 22 152/82 93 06/29/18 19:18 97.8 F 109 H 22 117/66 95 06/29/18 15:34 98.4 F 18 137/73 93 06/29/18 13:19 18 06/29/18 12:01 87 13 132/77 93 06/29/18 11:05 100 H 15 120/66 93 06/29/18 10:00 97 H 12 124/68 97 06/29/18 09:01 97 H 17 131/74 96 06/29/18 08:00 75 13 143/80 97 06/29/18 07:01 66 10 L 126/67 95 Intake and Output 06/29/18 06/30/18 06/30/18 21:59 05:59 13:59 Intake Total 1080 / 1080 240 / 240 Output Total 850 / 850 100 / 100 Balance 230 / 230 140 / 140 Intake: Oral 1080 / 1080 240 / 240 Output: Void Amount 850 / 850 100 / 100 Other: Meal Dinner Percent of Meal Consumed 100% Feeding Ability Independent Urine Appearance Clear Urine Color Straw Urine Odor Normal # Voids 1 Weight 172 lb 8 oz Intake & Output: Intake & Output 06/29/18 06/30/18 06/30/18 21:59 05:59 13:59 Intake Total 1080 / 1080 240 / 240 Output Total 850 / 850 100 / 100 Balance 230 / 230 140 / 140 Weight 172 lb 8 oz Intake: Oral 1080 / 1080 240 / 240 Output: Void Amount 850 / 850 100 / 100 Other: Meal Dinner Percent of Meal Consumed 100% Feeding Ability Independent Urine Appearance Clear Urine Color Straw Urine Odor Normal # Voids 1 - General Appearance General appearance: appears started age EENT: mucous membranes dry Neck: supple Respiratory: clear Cardiology: no edema Gastrointestinal: no tenderness Integumentary: no rash, warm and dry Neurologic: no focal deficit, alert and oriented x3 Musculoskeletal: no deformities Psychiatric: mood/affect appropriate, cooperative - Lab 06/29/18 03:20 06/30/18 04:25 Most recent lab results Calcium 9.4 mg/dl (8.6-10.4) 06/30/18 04:25 Phosphorus 3.5 mg/dL (2.7-4.5) 06/30/18 04:25 Magnesium 1.8 mg/dL (1.6-2.5) 06/30/18 04:25 Assessment and Plan (1) Hyponatremia Magy Barron is a 72 year old female with hypertension, diabetes mellitus type 2 and hyponatremia, admitted on 06/25/18. Hyponatremia, acute on chronic, suspected SIADH, associated with Chlorthalidone use, present on arrival. Work up: Labs on 06/28/18 while on Furosemide: Serum Sodium 123, Urine Osmolality 315 , Urine Sodium 107 Urinalysis on 06/26/18: Yellow, hazy, pH 6.0, SG 1.016, Protein negative, occult blood negative, leukocyte esterase negative. Treatment: Diet regular with 1500 ml fluid restriction. Sodium Chloride 2 g PO BID. Furosemide 20 mg IV BIDD. Progress: Urine output: 3989 ml reported in the past 24 hours. Serum sodium increased from 126 to 130 in the past 24 hours. Recommendations: Target serum sodium equal or greater than 130. Change Furosemide to 20 mg PO daily. Decrease Sodium Chloride 1 g PO BID. Avoid IVF including NS. Monitor BMP and urine output. Status: Acute Priority: High
[2018-06-30] MEDS: INSULIN LISPRO 1 UNIT/0.01 ML UNIT SQ SCH ×4 (06:57→20:47)
[2018-06-30] MEDS ORDERED: POTASSIUM CHLORIDE 20 MEQ PACKET PO ONE (07:52)
[2018-06-30] MEDS: amLODIPine 5 MG TABLET PO SCH (08:26)
[2018-06-30] MEDS: MULTIVIT,THER IRON,CA,FA & MIN 1 TABLET PO SCH (08:26)
[2018-06-30] MEDS: SODIUM CHLORIDE 1 GM TABLET PO SCH ×2 (08:26→20:40)
[2018-06-30] MEDS: CARVEDILOL 6.25 MG TABLET PO SCH ×2 (08:26→17:04)
[2018-06-30] MEDS: FUROSEMIDE 40 MG/4 ML VIAL IV SCH (08:26)
[2018-06-30] MEDS: ENOXAPARIN 40 MG/0.4 ML SYRINGE SQ SCH (08:27)
[2018-06-30] MEDS: FAMOTIDINE/PF 20 MG/2 ML VIAL IV SCH ×2 (08:27→20:40)
[2018-06-30] MEDS: DOCUSATE SODIUM 100 MG CAPSULE PO SCH ×2 (08:27→20:43)
[2018-06-30] MEDS: LIDOCAINE PATCH TOPICAL SCH (10:36)
--- NOTE | 2018-06-30 15:06 | Internal Med Progress Note ---
Medical - PN: Subj Patient information: Note initiated : 06/30/18 at 3:03 pm Service Date, if different from initiated Date: [] Patient: Magy Barron a 72 y/o F admitted on 06/25/18 for nausea. Chief Complaint: [] Interval history: Ms. Barron is a 72 year old F Who presents with severe weakness and nausea vomiting. Patient states Friday or she noticed her left rib pain and gradually got worse for the next couple days she finally went in Friday to the ER and was found to have left rib fracture. There is no trauma she did have a cold and had been coughing but does not recall what might of caused the fracture. She was given some [place] and sent home. On the way home she had a bout of emesis. She has had nausea vomiting since since initial pain from the rib fracture she had poor oral intake. She saw her primary care provider switched from hydrocodone to tramadol as there is concern that the hydrocodone was causing the nausea. However when probing her further she does state that the nausea was there before she went to the ER. She also has sciatica and received pain injections for that. She recently finished regimen of Cipro for a abscess on her foot. Today patient felt lightheaded and very weak and now slid herself to the ground. She was on the ground for several hours before came home found her. She denies abdominal pain or diarrhea. No inciting events for the nausea. No abnormal eating habits. Most recent medication change was changed from hydrochlorothiazide to chlorthalidone when she last saw Dr. Briggs 6 months ago. She is also on spironolactone. In the ER she is found to have a sodium of 110 and potassium 2.7. Chest x-ray unremarkable. 06/26 States she got about an hour worth of sleep last night. Nausea is present but improved from last night. No vomiting no other pains or complaints. The abscess on her right foot on the ball that she was treated with Cipro for looks good. Currently having lab issues with the sodium level unfortunately, and quite disconcerting in this patient's scenario. Stat chemistries are taking 2 hours to get back so a Chem-8 was done to expedite lab return and BMP was ordered at the same time to correlate. The chem-8 showed a sodium of 118 and when the BMP sodium finally came back it had a sodium of 114 -these numbers each give me a completely different path of treatment. Discussed with lab and lab is coming to repeat labs stat, currently in a holding pattern of what direction to take in a time sensitive scenario. 06/27 Slept okay last night. Nausea is improving. Has rib pain. Sodium improving. No other new complaints. No overnight events 06/28 Had felt a little feverish last night, but otherwise feeling better. She has not had any nausea/vomiting. She does have her usual rib pain which appears to be mild at this time. She does note that she was on hydrochlorothiazide in the past and 5 or 6 months ago she was changed to chlorthalidone and a follow-up lab by her PCP did reveal a low sodium. She was asked to increase her salt intake. She says she has not had any labs since then. 06/29 Patient seen and examined no acute overnight events or complaints. Heart rate stabilized still has intermittent PVC. Sodium is 124, slowly increased compared to yesterday. Given that sodium has been hovering in this range we will consult nephrology to help manage this and further optimize the patient. DERRICK Eller Transfer patient to [facility] status. 06/30 Pt seen examined, no acute overnight issues tolerating po diet well sodium improved to 130 appreciate nephrology help stil quite weak not stable for d/c anticipate d/c home vs snf in AM if sodium remains stable. Pertinent ROS: Denies headache, dizziness Denies chest pain, palpitations Denies cough or shortness of breath Denies abdominal pain, nausea or vomiting. - Constitutional Vitals: Vital Signs Temp Pulse Resp BP Pulse Ox 98.7 F 86 14 127/73 93 06/30/18 11:43 06/30/18 11:43 06/30/18 11:43 06/30/18 11:43 06/30/18 11:43 Period Temp Pulse Resp BP Sys/Dewitt Pulse Ox Last 24 Hr 97.8 F-99.6 F 86-109 - 117-161/66-96 92-96 Intake and Output 06/30/18 06/30/18 06/30/18 05:59 13:59 21:59 Intake Total 240 / 240 660 / 660 Output Total 100 / 100 600 / 600 400 / 400 Balance 140 / 140 -600 / -600 260 / 260 Intake & Output: Intake & Output 06/30/18 06/30/18 06/30/18 05:59 13:59 21:59 Intake Total 240 / 240 660 / 660 Output Total 100 / 100 600 / 600 400 / 400 Balance 140 / 140 -600 / -600 260 / 260 Intake: Oral 240 / 240 660 / 660 Output: Void Amount 100 / 100 600 / 600 400 / 400 Other: Meal Breakfast Lunch Percent of Meal Consumed 100% 100% Urine Appearance Clear Clear Urine Color Straw Dark Yellow Urine Odor Normal Normal Exam: Constitutional; Afebrile, cooperative, alert, not in distress. Respiratory system: Air Entry equal on both sides, No crackles or wheezing, no rhonchi. CVS- Rate rhythm regular, S1,S2 heard, no gallop, no rub. Abdomen- Soft nontender abdomen, no organomegaly, no tenderness, no guarding or rigidity, ENTRY ENGINEER- AOOx3, moving all extremities, no gross focal deficit noted. Medical - PN: Obj Da - Labs CBC & Chem 7: 06/29/18 03:20 06/30/18 04:25 Labs: Abnormal Lab Results 06/30/18 06/29/18 06/29/18 04:25 17:40 10:18 MPV Sodium 130 L 127 L 124 L Potassium 3.0 L Chloride 88 L 83 L 84 L Anion Gap Creatinine Glucose 220 H 190 H Uric Acid Phosphorus Total Bilirubin GGT 48 H Triglycerides 160 H 06/29/18 06/29/18 06/28/18 03:20 03:20 21:08 MPV 7.1 L Sodium 126 L 125 L Potassium Chloride 86 L 86 L Anion Gap Creatinine Glucose 110 H 169 H Uric Acid Phosphorus Total Bilirubin GGT 42 H Triglycerides 06/28/18 06/28/18 06/28/18 16:48 09:55 04:15 MPV Sodium 123 L 118 L* 123 L Potassium Chloride 82 L 83 L 88 L Anion Gap Creatinine 0.5 L Glucose 146 H 145 H Uric Acid 2.0 L Phosphorus 2.6 L Total Bilirubin 1.7 H GGT 38 H Triglycerides 06/27/18 06/27/18 06/27/18 21:18 18:26 15:54 MPV Sodium 118 L* 117 L* 115 L* Potassium 3.1 L 3.2 L Chloride 77 L 76 L 75 L Anion Gap 17.0 H Creatinine 0.5 L 0.5 L Glucose 140 H 172 H 131 H Uric Acid Phosphorus Total Bilirubin GGT Triglycerides Meds: Medications Acetaminophen (Tylenol) 650 mg PO Q6HP PRN PRN Reason: PAIN/FEVER > 101 Hydrocodone Bitart/Acetaminophen ([place] 5/325mg) 1 tab PO Q4HP PRN PRN Reason: PAIN LEVEL 3-6 Last Admin: 06/29/18 20:25 Dose: 1 tab Amlodipine Besylate (Norvasc) 5 mg PO DAILY [facility] Last Admin: 06/30/18 08:26 Dose: 5 mg [facility] Last Admin: 06/30/18 08:26 Dose: 6.25 mg Dextrose (Dextrose 50%) 0 ml IV UD PRN PRN Reason: Hypoglycemia Diagnostic Test (Pha) (Accu-Chek) [address] [facility] Last Admin: 06/30/18 11:25 Dose: 1 each Diphenhydramine HCl (Benadryl) 25 mg PO HSP PRN PRN Reason: Insomnia Docusate Sodium (Colace) 100 mg PO BID [facility] Last Admin: 06/30/18 08:27 Dose: Not Given Enoxaparin Sodium (Lovenox) 40 mg SQ DAILY [facility] Last Admin: 06/30/18 08:27 Dose: 40 mg Famotidine (Pepcid) 20 mg IV Q12 [facility] Last Admin: 06/30/18 08:27 Dose: 20 mg Furosemide (Lasix) 20 mg PO DAILY [facility] Glucose (Insta-Glucose) 15 gm PO PRN PRN PRN Reason: Hypoglycemia Heparin Sodium (Porcine) (Heparin Flush) 2 ml IV Q12 [facility] Last Admin: 06/30/18 08:27 Dose: 2 ml Hydralazine HCl (Apresoline) 0 mg IV Q2HP PRN PRN Reason: Hypertension Insulin Human Lispro (Humalog) [address] [facility]; Protocol Last Admin: 06/30/18 11:25 Dose: 6 units Iron Carb/Multivit/Cooling System Operator/Folic Acid (Multivitamin W/Minerals) 1 tab PO DAILY [facility] Last Admin: 06/30/18 08:26 Dose: 1 tab Lidocaine (Lidoderm) 1 patch TOPICAL DAILY@1000 [facility] Last Admin: 06/30/18 10:36 Dose: 1 patch Morphine Sulfate (Morphine) 2 mg IV Q3HP PRN PRN Reason: PAIN LEVEL > 6 Ondansetron HCl (Zofran) 4 mg IV Q4HP PRN PRN Reason: Nausea And Vomiting Prochlorperazine Maleate (Compazine) 12.5 mg MD Q12HP PRN PRN Reason: Nausea And Vomiting Promethazine HCl (Phenergan) 12.5 mg PO Q6HP PRN PRN Reason: Nausea And Vomiting Sodium Chloride (Saline Flush) 10 ml IV Q8 [facility] Last Admin: 06/30/18 05:46 Dose: 10 ml Sodium Chloride (Sodium Chloride) 1 gm PO BID [facility] Medical - PN: A/P - Time Spent With Patient Total time spent is greater than 50% in coordination of care (as documented) at patient's floor/unit and/or counseling patient: - Narrative A/P Narrative: A: *Hyponatremia, Chronic: Likely secondary to multiple diuretics and poor oral intake, but after NS IV hydration resulting in only mild improvement in Na and then leveled, is now presenting as SIADH -TSH/cortisol ok, initial urine sodium assay hampered by sodium wasting diuretics -resistant at times with treatment and required 3% -CT chest done for resistant SIADH and nontraumatic rib fx to evaluate for any malignancy - results unremarkable -Etiology likely due to pain/diarrhea/nausea vomiting and use of thiazide diuretics, *Hypokalemia: Secondary to same above, -Improved, continue to replace. *Leukocytosis: Possibly reactive, afebrile, no respiratory symptoms. She did just finish a course of antibiotics for foot abscess infection which is improved -no bandemia, PCT low, healing abscess on foot looks good -resolved w/o intervention *Diabetes with neuropathy: *Hypertension: She is on Norvasc/Coreg/losartan/Aldactone and chlorthalidone at home *GERD *recent rib fracture: P: -fluid restrict, salt tabs -nephrology help appreciated -potassium replete -MId line placed for better lab access -Antiemetics, pain control -SSI for glucose control, hold metformin -cont norvasc, hold home BB/ARB for lower BP's recently, resume once bp stable x 24 hrs -ppx: [facility] - PN: Qual - VTE Deep Vein Thrombosis/Pulmonary Embolism Present on Admission: No
--- NOTE | 2018-07-01 07:00 | Nephrology Progress Note ---
Subjective Patient information: Note initiated : 07/01/18 at 6:58 am Patient: Magy Barron 72 y/o F admitted on 06/25/18 for nausea. Chief Complaint: Weakness Principal diagnosis: Hyponatremia Pertinent ROS: Weakness No confusion No pain Objective - Vital Signs Vital signs: Vital Signs Temp Pulse Resp BP Pulse Ox 07/01/18 03:46 98.8 F 88 20 141/74 93 06/30/18 23:45 97.5 F 92 H 20 131/72 96 06/30/18 19:08 99.0 F 94 H 20 134/77 96 06/30/18 16:00 98.3 F 18 153/85 97 06/30/18 11:43 98.7 F 86 14 127/73 93 Intake and Output 06/30/18 07/01/18 07/01/18 21:59 05:59 13:59 Intake Total 990 / 990 260 / 260 Output Total 650 / 650 200 / 200 Balance 340 / 340 60 / 60 Intake: Oral 990 / 990 260 / 260 Output: Void Amount 650 / 650 200 / 200 Other: Meal Lunch Fruit cup Percent of Meal Consumed 100% 100% Feeding Ability Independent Urine Appearance Cloudy Clear Urine Color Bright Yellow Light Divine Urine Odor Strong Weight 172 lb Intake & Output: Intake & Output 06/30/18 07/01/18 07/01/18 21:59 05:59 13:59 Intake Total 990 / 990 260 / 260 Output Total 650 / 650 200 / 200 Balance 340 / 340 60 / 60 Weight 172 lb Intake: Oral 990 / 990 260 / 260 Output: Void Amount 650 / 650 200 / 200 Other: Meal Lunch Fruit cup Percent of Meal Consumed 100% 100% Feeding Ability Independent Urine Appearance Cloudy Clear Urine Color Bright Yellow Light Divine Urine Odor Strong - General Appearance General appearance: appears started age EENT: mucous membranes moist Neck: supple Respiratory: clear Cardiology: no edema Gastrointestinal: no tenderness Integumentary: warm and dry Neurologic: no focal deficit, alert and oriented x3 Musculoskeletal: no deformities Psychiatric: mood/affect appropriate, cooperative - Lab 06/29/18 03:20 07/01/18 08:18 Most recent lab results Calcium 9.4 mg/dl (8.6-10.4) 06/30/18 04:25 Phosphorus 3.5 mg/dL (2.7-4.5) 06/30/18 04:25 Magnesium 1.8 mg/dL (1.6-2.5) 06/30/18 04:25 Assessment and Plan (1) Hyponatremia Magy Barron is a 72 year old female with hypertension, diabetes mellitus type 2 and hyponatremia, admitted on 06/25/18. Hyponatremia, acute on chronic, suspected SIADH, associated with Chlorthalidone use, present on arrival. Work up: Labs on 06/28/18 while on Furosemide: Serum Sodium 123, Urine Osmolality 315 , Urine Sodium 107 Urinalysis on 06/26/18: Yellow, hazy, pH 6.0, SG 1.016, Protein negative, occult blood negative, leukocyte esterase negative. Treatment: Diet regular with 1500 ml fluid restriction. Sodium Chloride 1 g PO BID. Furosemide 20 mg PO daily. Progress: Urine output: 1450 ml reported in the past 24 hours. Serum sodium increased from 130 to 134 in the past 24 hours. Recommendations: Target serum sodium equal or greater than 130. Follow up with PCP. Referral to nephrology if needed by PCP. Status: Acute Priority: High
[2018-07-01] MEDS: INSULIN LISPRO 1 UNIT/0.01 ML UNIT SQ SCH ×2 (08:02→12:34)
[2018-07-01] MEDS ORDERED: FUROSEMIDE 20 MG TABLET PO SCH (09:00)
[2018-07-01 09:06] LABS: Blood Urea Nitrogen 24 mg/dl (8-23)
[2018-07-01] MEDS: DOCUSATE SODIUM 100 MG CAPSULE PO SCH (09:24)
[2018-07-01] MEDS: SODIUM CHLORIDE 1 GM TABLET PO SCH (09:24)
[2018-07-01] MEDS: FAMOTIDINE/PF 20 MG/2 ML VIAL IV SCH (09:24)
[2018-07-01] MEDS: CARVEDILOL 6.25 MG TABLET PO SCH (09:24)
[2018-07-01] MEDS: amLODIPine 5 MG TABLET PO SCH (09:24)
[2018-07-01] MEDS: MULTIVIT,THER IRON,CA,FA & MIN 1 TABLET PO SCH (09:24)
[2018-07-01] MEDS: ENOXAPARIN 40 MG/0.4 ML SYRINGE SQ SCH (09:25)
[2018-07-01] MEDS: 0.9 % SODIUM CHLORIDE 10 ML SYRINGE IV SCH (09:25)
[2018-07-01] MEDS: LIDOCAINE PATCH TOPICAL SCH (09:32)
--- NOTE | 2018-07-01 11:06 | Discharge Summary ---
Medical - DS: Prov Patient information: Note initiated : 07/01/18 at 11:04 am Service Date, if different from initiated Date: [] Patient: Magy Barron 72 y/o F admitted on 06/25/18 for nausea. Chief Complaint: [] Date of admission: 06/25/18 20:24 Discharge date: 07/01/18 Primary care physician: Suman Stevens Admitting clinician: Arsen Alan Consults: 06/25/18 Consult to Physician [CONS] Stat Comment: Consulting Provider: [place] Reason For Exam: Physician to Consult 06/29/18 14:36 Consult to Physician [CONS] Routine Comment: Hyponatremia Consulting Provider: Jeanine Benites Reason For Exam: Physician to Consult Discharging clinician: Arsen Alan Medical - DS: Meds - Discharge Medications Prescriptions: amLODIPine [Norvasc] 10 mg PO DAILY #30 tab Furosemide [Lasix] 20 mg PO DAILY #30 tab Sodium Chloride 1 gm PO BID #60 tab Active and Home Medications: Home Medications Carvedilol [Coreg] 25 mg PO BID 06/20/16 [History Confirmed 06/25/18 Last Taken 06/25/18 09:00] Cyanocobalamin [Vitamin B12] 1,000 mcg IM Q21D 06/20/16 [History Confirmed 06/25 Last Taken 06/25/16 08:00] Fish Oil 1,000 mg PO BID 06/20/16 [History Confirmed 06/25/18 Last Taken ] Losartan Potassium [Cozaar] 100 mg PO DAILY@1200 06/20/16 [History Confirmed Last Taken 06/24/18 12:00] Multivit with Iron-Minerals [Centravites 50 Plus] 1 tab PO DAILY 06/20/16 [ History Confirmed 06/25/18 Last Taken 06/25/16 08:00] Omeprazole [PriLOSEC] 20 mg PO ACB 06/20/16 [History Confirmed 06/25/18 Last Taken 06/25/18 09:00] Spironolactone [Aldactone] 25 mg PO DAILY 06/20/16 [History Confirmed 06/25/18 Last Taken 06/25/18 09:00] amLODIPine [Norvasc] 5 mg PO DAILY 06/20/16 [History Confirmed 06/25/18 Last Taken 06/25/18 09:00] metFORMIN HCL [Glucophage Xr] 500 mg PO BID 06/20/16 [History Confirmed Last Taken 06/25/16 08:00] traMADol [Ultram] 50 mg PO BID 06/20/16 [History Confirmed 06/25/18 Last Taken 06/25/18 07:00] Chlorthalidone 50 mg PO DAILY 06/25/18 [History Confirmed 06/25/18 Last Taken 09:00] Medical - DS: Hosp Hospital course: Ms Barron is a 72 yr female who presented with severe weakness and nausea vomiting. Patient states Friday or she noticed her left rib pain and gradually got worse for the next couple days she finally went in Friday to the ER and was found to have left rib fracture. There is no trauma she did have a cold and had been coughing but does not recall what might of caused the fracture. She was given some Alsip and sent home. On the way home she had a bout of emesis. She has had nausea vomiting since since initial pain from the rib fracture she had poor oral intake. She saw her primary care provider switched from hydrocodone to tramadol as there is concern that the hydrocodone was causing the nausea. However when probing her further she does state that the nausea was there before she went to the ER. She also has sciatica and received pain injections for that. She recently finished regimen of Cipro for a abscess on her foot. Today patient felt lightheaded and very weak and now slid herself to the ground. She was on the ground for several hours before came home found her. She denies abdominal pain or diarrhea. No inciting events for the nausea. No abnormal eating habits. Most recent medication change was changed from hydrochlorothiazide to chlorthalidone when she last saw Dr. Briggs 6 months ago. She is also on spironolactone. In the ER she is found to have a sodium of 110 and potassium 2.7. Chest x-ray unremarkable. Admitted to the hospital for further management. A: *Hyponatremia, Acute on Chronic:-Etiology likely due to pain (rib fracture) / diarrhea/nausea vomiting and use of thiazide diuretics, -TSH/cortisol ok, initial urine sodium assay hampered by sodium wasting diuretics -resistant at times with treatment and required 3% -CT chest done for resistant SIADH and nontraumatic rib fx to evaluate for any malignancy - results unremarkable -At the time of discharge pt was on lasix 20mg daily, sodium chloride 1gm bid with good response. Sodium was 133 at the time of discharge. -PCP to check sodium levels/Potassium levels,/Renal function in 1 week HTN -Pt on multiple meds, given hyponatremia, I have stopped the aldactone and chlorthalidone as they can contribute with hyponatremia -increased dose of amlodipine from 5mg to 10mg -Pt will continue with coreg 25bid and losartan 100 -follow up with PCP for further titration. *Hypokalemia: Secondary to same above, -Improved, 3.7 at discharge, -to be checked as outpatient, if needed supplements to be started. The rest of the stay in the hospital was uneventful, she will be discharged home with with outpatient rehab. Discharge diagnosis: Hyponatremia - Time Spent with Patient Total time spent providing and/or coordinating discharge services: Greater than 30 minutes Medical - DS: Exam - Constitutional Vitals: Vital Signs Temp Pulse Resp BP Pulse Ox 07/01/18 07:49 97.4 F 84 20 149/75 92 07/01/18 03:46 98.8 F 88 20 141/74 93 06/30/18 23:45 97.5 F 92 H 20 131/72 96 06/30/18 19:08 99.0 F 94 H 20 134/77 96 06/30/18 16:00 98.3 F 18 153/85 97 06/30/18 11:43 98.7 F 86 14 127/73 93 Intake and Output 06/30/18 07/01/18 07/01/18 21:59 05:59 13:59 Intake Total 990 / 990 260 / 260 Output Total 650 / 650 200 / 200 Balance 340 / 340 60 / 60 Intake: Oral 990 / 990 260 / 260 Output: Void Amount 650 / 650 200 / 200 Other: Meal Lunch Fruit cup Percent of Meal Consumed 100% 100% Feeding Ability Independent Urine Appearance Cloudy Clear Urine Color Bright Yellow Light Divine Urine Odor Strong Weight 172 lb Additional comments: Constitutional; Afebrile, cooperative, alert, not in distress. Respiratory system: Air Entry equal on both sides, No crackles or wheezing, no rhonchi. CVS- Rate rhythm regular, S1,S2 heard, no gallop, no rub. Abdomen- Soft nontender abdomen, no organomegaly, no tenderness, no guarding or rigidity, [employer]- AOOx3, moving all extremities, no gross focal deficit noted. Medical - DS: Data Labs on day of discharge: Labs from last 24 hours 07/01/18 08:18 Sodium 134 Potassium 3.7 Chloride 90 L Carbon Dioxide 31 H Anion Gap 13.0 BUN 24 H Creatinine 0.6 GFR Calculation 92 Glucose 130 H Calcium 9.4 Medical - DS: A/P - Patient/Caregiver Discharge Instructions Activity: as per physical therapy, increase activity as tolerated Diet: Cardiac, Consistent Carbohydrate Additional Instructions: Please limit fluid intake to 1500ml in 24 hours You have been started on sodium chloride (salt tablets) 1 gm twice daily, Lasix 20mg once daily (diuretic). I have increased the dose of amlodipine from 5mg daily to 10mg daily Please stop the aldactone and chlorothalidone Continue the rest of medications as prescribed by your regular doctor. Go to the ER if worsening symptoms, chest pain, fever, shortness of breath or any other acute concern. Follow up with PCP within 1 week Please make sure that your PCP checks your sodium, potassium and kidney functin within one week. You may need potassium supplements if your potassium level drops low, your PCP will advise you on this. - Follow up Plan Follow up with: Suman Stevens MD [Primary Care Provider] - Disposition: Home, Self-Care Prognosis: Fair Rehab Potential: Fair I certify that the patient requires SNF services: No Overall status at discharge: patient is progressing back to baseline Medical - DS: Qual - VTE Deep Vein Thrombosis/Pulmonary Embolism Present on Admission: No
== END 2018-07-01 13:30 | disposition home or self-care (01) | DRG 641 ==
LOC: ED 15:46 → ICU 20:24 → MEDSUR 06-29 15:06
PROVIDERS: ADMIT Internal Medicine; ATTEND Internal Medicine
CPT/HCPCS: 80047; 84145; 85014; 97161; 97166; 99231; A4221; C1751; G8996; G8997; G8998; J0360; J1650; J1817; J1940; J2405; J3475; J3480; J7030; J7040; J7060; P9047; Q9967